=== PATIENT | female | born 1940 | race American Indian/Alaskan Native ===

== ENCOUNTER 2018-12-09 16:41 | Inpatient (IN) | payer MEDICARE ==
[2018-12-09] MEDS ORDERED: NACL 0.9% 1000 ML 1,000 ML IV ONE (17:11)
--- NOTE | 2018-12-09 17:16 | Emergency Department Report ---
ED Syncope HPI - General Stated Complaint: SYNCOPE Time Seen by Provider: 12/09/18 17:10 Source: patient, EMS Exam Limitations: clinical condition - History of Present Illness Initial Comments: Patient is a 77-year-old female that presents emergency room with complaints of syncope and nausea and vomiting. Patient has history of dementia. Patient is currently A&OX1. EMS report reviewed. Per report from EMS, patient had a few bouts of nausea and vomiting and then had a syncopal episode and was found on the floor when EMS arrived. Patient also has seizure like activity per report. Patient sent to the ER via EMS from her assisted living and memory care. Patient is a poor historian due to her dementia and altered cognition. Patient states she passed out but is not for sure how long. Patient states she has been feeling nauseous. Patient denies chest pain or shortness of breath. Patient denies fever or chills. Timing/Prior Episodes: single episode today Precipitating Factors: Positive: nausea Context: activity Loss of Consciousness: brief (seconds) Current Symptoms: back to normal - Related Data Allergies/Adverse Reactions: Allergies No Known Allergies Allergy (Verified 12/09/18 19:05) ED Review of Systems ROS: Stated complaint: SYNCOPE Other details as noted in HPI Comment: Unobtainable due to pts medical conditions ED Past Medical Hx - Past Medical History Previous Medical History?: Yes Hx Psychiatric Treatment: Yes Hx Dementia: Yes Additional medical history: Hyperlipidemia, dementia - Surgical History Past Surgical History?: No - Family History Family history: no significant - Social History Smoking Status: Never Smoker Substance Use Type: None ED Physical Exam - General Limitations: Altered Mental Status General appearance: alert, in no apparent distress - Head Head exam: Present: atraumatic, normocephalic - Eye Eye exam: Present: normal appearance, PERRL Pupils: Present: normal accommodation - ENT ENT exam: Present: mucous membranes moist - Neck Neck exam: Present: normal inspection - Respiratory Respiratory exam: Present: normal lung sounds bilaterally. Absent: respiratory distress - Cardiovascular Cardiovascular Exam: Present: regular rate, normal rhythm. Absent: systolic murmur, diastolic murmur, rubs, gallop - GI/Abdominal GI/Abdominal exam: Present: soft, normal bowel sounds - Extremities Exam Extremities exam: Present: normal inspection - Back Exam Back exam: Present: normal inspection - Neurological Exam Neurological exam: Present: alert, altered - Psychiatric Psychiatric exam: Present: normal affect, normal mood - Skin Skin exam: Present: warm, dry, intact, normal color. Absent: rash ED Course Vital Signs 12/09/18 12/09/18 12/09/18 17:15 19:15 19:31 Temperature 97.6 F Pulse Rate 87 97 H Respiratory 28 H 15 Rate Blood Pressure 156/65 138/111 Blood Pressure 134/44 [Left] O2 Sat by Pulse 100 98 99 Oximetry 12/09/18 12/09/18 12/09/18 20:00 21:15 21:21 Temperature Pulse Rate 87 85 Respiratory 13 13 Rate Blood Pressure 140/59 154/76 154/76 Blood Pressure [Left] O2 Sat by Pulse 99 Oximetry 12/09/18 12/09/18 21:30 21:41 Temperature Pulse Rate 87 Respiratory 24 17 Rate Blood Pressure 154/76 140/59 Blood Pressure [Left] O2 Sat by Pulse Oximetry - Reevaluation(s) Reevaluation #1: Patient resting in bed without problems. The patient has a 22-gauge in her right hand however a bigger more superior IV unable to be obtained. The patient will have a nuclear medicine study for her elevated d-dimer and syncope. 12/09/18 19:14 Discussed all results with patient. Patient will be admitted to the hospitalist service. Patient agrees to plan of care. 12/09/18 20:45 - Consultations Consultation #1: Hospitalist consulted for admission. Hospitalist to admit patient. Hospitalist to assume care patient. 12/09/18 20:45 ED Medical Decision Making - Lab Data Result diagrams: 12/09/18 17:18 12/09/18 17:18 - EKG Data -: EKG Interpreted by Mi EKG shows normal: sinus rhythm, axis, intervals, QRS complexes, ST-T waves Rate: normal - EKG Data Interpretation: [facility] - Radiology Data Radiology results: report reviewed PROCEDURE: CT HEAD/BRAIN WO CON TECHNIQUE: Computerized tomography of the head was performed without contrast material. CT DOSE LENGTH PRODUCT: 1047.3 mGycm HISTORY: Syncope COMPARISONS: None . FINDINGS: Brain: There is no evidence of intracranial hemorrhage. No parenchymal hemorrhage is seen. No mass lesions or mass effect are identified. No abnormal extra-axial fluid collections or masses are seen. There is some decreased density seen in the periventricular white matter without mass effect. This is fairly symmetric and does not exhibit any mass effect consistent with gliosis probably on the basis of microvascular disease or white matter changes of aging. Ventricles: The ventricles, sulcal pattern and fissures are prominent consistent with atrophy. Bone Windows: No evidence of fracture. Paranasal sinuses: Clear. Mastoid air cells: Clear. IMPRESSION: There is evidence of moderate atrophy and gliosis. No acute intracranial abnormalities are identified. PROCEDURE: XR CHEST 1V AP TECHNIQUE: Chest radiograph single view. HISTORY: cough COMPARISONS: None . FINDINGS: Frontal view of the chest was acquired and demonstrates that the heart is mildly large. There is no evidence of congestive heart failure. There is no consolidative infiltrate. IMPRESSION: Cardiomegaly. Otherwise, no active disease in the chest PROCEDURE: Nuclear medicine ventilation and perfusion lung scan. TECHNIQUE: Ventilation imaging was done in the posterior projection using 15.33 mCi of xenon-133 gas. Perfusion imaging was done in multiple projections using 4.07 mCi of technetium 99m MAA. HISTORY: syncope. elevated d-dimer COMPARISONS: Comparison chest radiograph 12/09/2018. FINDINGS: There is symmetrical, homogeneous ventilation bilaterally. There is no trapping of xenon gas during the washout phase of the study. The perfusion images are also homogeneous. The lung scan is normal and carries an extremely low probability of pulmonary embolism. IMPRESSION: Normal lung scan. - Medical Decision Making Patient is a 77-year-old female Emergency room with complaints of syncope and possible seizure-like activity and nausea vomiting. Patient admitted to the hospital service. Patient lives unremarkable. Patient just x-ray negative. Patient's head CT negative. Patient had a lung scan for simple episode and elevated d-dimer and was negative for PE. - Differential Diagnosis syncope. Seizure-like activity. Nausea and vomiting. Critical Care Time: Yes Critical care attestation.: If time is entered above; I have spent that time in minutes in the direct care of this critically ill patient, excluding procedure time. Critical Care Time: 35 minutes ED Disposition Clinical Impression: Seizure-like activity, Elevated d-dimer Syncopal episodes Qualifiers: Syncope type: unspecified Qualified Code(s): R55 - Syncope and collapse Nausea & vomiting Qualifiers: Vomiting type: unspecified Vomiting Intractability: non-intractable Qualified Code(s): R11.2 - Nausea with vomiting, unspecified Disposition: -09 OP ADMIT IP TO THIS HOSP Is pt being admited?: Yes Does the pt Need Aspirin: No Condition: Fair Time of Disposition: 22:26
[2018-12-09 17:42] LABS: Basophils % (Auto) 0.2 % (0.0-1.8); Eosinophils % (Auto) 1.2 % (0.0-4.3); Hematocrit 38.6 % (30.3-42.9); Hemoglobin 12.8 gm/dl (10.1-14.3); Lymphocytes # (Auto) 1.6 K/mm3 (1.2-5.4); Lymphocytes % (Auto) 20.6 % (13.4-35.0); Mean Corpuscular HGB Conc 33 % (30-34); Mean Corpuscular Volume 86 fl (79-97); Monocytes % (Auto) 6.6 % (0.0-7.3); Platelet Count 222 K/mm3 (140-440); Red Blood Count 4.49 M/mm3 (3.65-5.03); Red Cell Distribution Width 15.8 % (13.2-15.2)
[2018-12-09 17:43] LABS: Eosinophils # (Auto) 0.1 K/mm3 (0.0-0.4); Monocytes # (Auto) 0.5 K/mm3 (0.0-0.8)
[2018-12-09 18:00] LABS: Creatine Kinase MB 2.3 ng/mL (0.0-4.0)
[2018-12-09 18:01] LABS: Alanine Aminotransferase 14 units/L (7-56); Albumin 3.6 g/dL (3.9-5); BUN/Creatinine Ratio 21; Blood Urea Nitrogen 21 mg/dL (7-17); Hemolysis Index 10
--- NOTE | 2018-12-09 18:01 | Cat Scan Report ---
PROCEDURE: CT HEAD/BRAIN WO CON TECHNIQUE: Computerized tomography of the head was performed without contrast material. CT DOSE LENGTH PRODUCT: 1047.3 mGycm HISTORY: Syncope COMPARISONS: None . FINDINGS: Brain: There is no evidence of intracranial hemorrhage. No parenchymal hemorrhage is seen. No mass lesions or mass effect are identified. No abnormal extra-axial fluid collections or masses are seen. There is some decreased density seen in the periventricular white matter without mass effect. This i s fairly symmetric and does not exhibit any mass effect consistent with gliosis probably on the basis of microvascular disease or white matter changes of aging. Ventricles: The ventricles, sulcal pattern and fissures are prominent consistent with atrophy. Bone Windows: No evidence of fracture. Paranasal sinuses: Clear. Mastoid air cells: Clear. IMPRESSION: There is evidence of moderate atrophy and gliosis. No acute intracranial abnormalities are identified . This document is electronically signed by Smith Cummings MD., December 09 2018 06:00:08 PM ET
--- NOTE | 2018-12-09 20:29 | XRay Report ---
PROCEDURE: XR CHEST 1V AP TECHNIQUE: Chest radiograph single view. HISTORY: cough COMPARISONS: None . FINDINGS: Frontal view of the chest was acquired and demonstrates that the heart is mildly large. The re is no evidence of congestive heart failure. There is no consolidative infiltrate. IMPRESSION: Cardiomegaly. Otherwise, no active disease in the chest This document is electronically signed by Eduard Valente MD., December 09 2018 08:27:03 PM ET
[2018-12-09] MEDS ORDERED: TYLENOL PO PRN (20:58)
[2018-12-09] MEDS ORDERED: SODIUM CHLORIDE FLUSH SYRINGE 10 ML IV PRN (20:58)
[2018-12-09] MEDS ORDERED: ZOFRAN IV PRN (20:58)
[2018-12-09] MEDS ORDERED: MILK OF MAGNESIA PO PRN (20:58)
--- NOTE | 2018-12-09 20:58 | History and Physical Report ---
<BARTOLOME SOMMER - Last Filed: 12/09/18 23:42> History of Present Illness Date of examination: 12/09/18 Date of admission: 12/09/2018 Chief complaint: syncope or seizure History of present illness: Patient is a 77-year-old female with PMHx of dementia, who was brought to the ER for syncope and seizure activities. Pt is currently resides in a assisted because of dementia. Pt's daughter states that she was called by the home care about the her mother's syncopal episode and the seizure activity today. She states that the pt had no prior history of seizure disorder. Pt answer yes or no to question, she was unable to provide medical history due to dementia. Past History Past Medical History: other (dementia) Past Surgical History: No surgical history Social history: no significant social history Family history: no significant family history Medications and Allergies Allergies Allergy/AdvReac Type Severity Reaction Status Date / Time No Known Allergies Allergy Verified 12/09/18 19:05 Review of Systems ROS unobtainable: due to mental status Exam - Constitutional Vitals: Temp Pulse Resp BP Pulse Ox 97.6 F 97 H 15 134/44 98 12/09/18 19:15 12/09/18 19:15 12/09/18 19:15 12/09/18 19:15 12/09/18 19:15 General appearance: Present: no acute distress - EENT Eyes: Present: PERRL, EOM intact - Neck Neck: Present: supple, normal ROM - Respiratory Respiratory effort: normal Respiratory: bilateral: CTA - Cardiovascular Rhythm: regular - Extremities Extremities: no ischemia, No edema Peripheral Pulses: within normal limits - Abdominal General gastrointestinal: Present: non-tender, non-distended Female genitourinary: Present: deferred - Rectal Rectal Exam: deferred - Integumentary Integumentary: Present: warm, dry - Musculoskeletal Musculoskeletal: strength equal bilaterally - Psychiatric Psychiatric: appropriate mood/affect - Neurologic Neurologic: moves all extremities Results - Labs CBC & Chem 7: 12/09/18 17:18 12/09/18 17:18 Labs: Laboratory Last Values WBC 7.7 K/mm3 (4.5-11.0) 12/09/18 17:18 RBC 4.49 M/mm3 (3.65-5.03) 12/09/18 17:18 Hgb 12.8 gm/dl (10.1-14.3) 12/09/18 17:18 Hct 38.6 % (30.3-42.9) 12/09/18 17:18 MCV 86 fl (79-97) 12/09/18 17:18 MCH 29 pg (28-32) 12/09/18 17:18 MCHC 33 % (30-34) 12/09/18 17:18 RDW 15.8 % (13.2-15.2) H 12/09/18 17:18 Plt Count 222 K/mm3 (140-440) 12/09/18 17:18 Lymph % (Auto) 20.6 % (13.4-35.0) 12/09/18 17:18 [place] % (Auto) 6.6 % (0.0-7.3) 12/09/18 17:18 Eos % (Auto) 1.2 % (0.0-4.3) 12/09/18 17:18 Baso % (Auto) 0.2 % (0.0-1.8) 12/09/18 17:18 Lymph # 1.6 K/mm3 (1.2-5.4) 12/09/18 17:18 [place] # 0.5 K/mm3 (0.0-0.8) 12/09/18 17:18 Eos # 0.1 K/mm3 (0.0-0.4) 12/09/18 17:18 Baso # 0.0 K/mm3 (0.0-0.1) 12/09/18 17:18 Seg Neutrophils % 71.4 % (40.0-70.0) H 12/09/18 17:18 Seg Neutrophils # 5.5 K/mm3 (1.8-7.7) 12/09/18 17:18 660.35 ng/mlDDU (0-234) H 12/09/18 17:18 Sodium 134 mmol/L (137-145) L 12/09/18 17:18 Potassium 3.9 mmol/L (3.6-5.0) 12/09/18 17:18 Chloride 99.0 mmol/L (98-107) 12/09/18 17:18 Carbon Dioxide 23 mmol/L (22-30) 12/09/18 17:18 16 mmol/L 12/09/18 17:18 BUN 21 mg/dL (7-17) H 12/09/18 17:18 1.0 mg/dL (0.7-1.2) 12/09/18 17:18 Estimated GFR > 60 ml/min 12/09/18 17:18 21 % 12/09/18 17:18 Glucose 114 mg/dL (65-100) H 12/09/18 17:18 Calcium 11.0 mg/dL (8.4-10.2) H 12/09/18 17:18 0.20 mg/dL (0.1-1.2) 12/09/18 17:18 AST 17 units/L (5-40) 12/09/18 17:18 ALT 14 units/L (7-56) 12/09/18 17:18 85 units/L (35-129) 12/09/18 17:18 43 units/L (30-135) 12/09/18 17:18 CK-MB (CK-2) 2.3 ng/mL (0.0-4.0) 12/09/18 17:18 CK-MB (CK-2) Rel Index 5.3 (0-4) H 12/09/18 17:18 < 0.010 ng/mL (0.00-0.029) 12/09/18 17:18 7.1 g/dL (6.3-8.2) 12/09/18 17:18 3.6 g/dL (3.9-5) L 12/09/18 17:18 1.0 % 12/09/18 17:18 Assessment and Plan Assessment and plan: 1. Acute syncopal episode 2. Seizure disorder 3. Dementia Plan: Admit to [facility] Seizure precaution Monitor neuro status q2hr Consult neurology for evaluation EEG in am Pt has no home medications DVT prophylaxis with Lovenox Advance Directives: Yes VTE prophylaxis?: Chemical Plan of care discussed with patient/family: Yes <YADIRA HINOJOSA - Last Filed: 12/10/18 06:03> History of Present Illness Date of admission: 12/09/18 20:59 Medications and Allergies Active Meds: Active Medications Acetaminophen (Tylenol) 650 mg PO Q4H PRN PRN Reason: Pain MILD(1-3)/Fever >100.5/TORRES Aspirin (Aspirin) 325 mg PO QDAY [facility] Enoxaparin Sodium (Lovenox) 40 mg SUB-Q QDAY [facility] Famotidine (Pepcid) 10 mg PO BID [facility] Last Admin: 12/09/18 22:54 Dose: 10 mg Documented by: Sodium Chloride (Nacl 0.9% 1000 Ml) 1,000 mls @ 75 mls/hr IV DIRECT [facility] Last Admin: 12/09/18 22:54 Dose: 75 mls/hr Documented by: Magnesium Hydroxide (Milk Of Magnesia) 30 ml PO Q4H PRN PRN Reason: Constipation Ondansetron HCl (Zofran) 4 mg IV Q8H PRN PRN Reason: Nausea And Vomiting Sodium Chloride (Sodium Chloride Flush Syringe 10 Ml) 10 ml IV BID [facility] Last Admin: 12/09/18 22:54 Dose: 10 ml Documented by: Sodium Chloride (Sodium Chloride Flush Syringe 10 Ml) 10 ml IV PRN PRN PRN Reason: LINE FLUSH Exam - Constitutional Vitals: Temp Pulse Resp BP Pulse Ox 97.5 F L 84 18 148/54 100 12/09/18 23:22 12/09/18 23:22 12/09/18 23:22 12/09/18 23:22 12/09/18 23:22 Results - Labs CBC & Chem 7: 12/09/18 17:18 12/09/18 17:18 Labs: Laboratory Last Values WBC 7.7 K/mm3 (4.5-11.0) 12/09/18 17:18 RBC 4.49 M/mm3 (3.65-5.03) 12/09/18 17:18 Hgb 12.8 gm/dl (10.1-14.3) 12/09/18 17:18 Hct 38.6 % (30.3-42.9) 12/09/18 17:18 MCV 86 fl (79-97) 12/09/18 17:18 MCH 29 pg (28-32) 12/09/18 17:18 MCHC 33 % (30-34) 12/09/18 17:18 RDW 15.8 % (13.2-15.2) H 12/09/18 17:18 Plt Count 222 K/mm3 (140-440) 12/09/18 17:18 Lymph % (Auto) 20.6 % (13.4-35.0) 12/09/18 17:18 [place] % (Auto) 6.6 % (0.0-7.3) 12/09/18 17:18 Eos % (Auto) 1.2 % (0.0-4.3) 12/09/18 17:18 Baso % (Auto) 0.2 % (0.0-1.8) 12/09/18 17:18 Lymph # 1.6 K/mm3 (1.2-5.4) 12/09/18 17:18 [place] # 0.5 K/mm3 (0.0-0.8) 12/09/18 17:18 Eos # 0.1 K/mm3 (0.0-0.4) 12/09/18 17:18 Baso # 0.0 K/mm3 (0.0-0.1) 12/09/18 17:18 Seg Neutrophils % 71.4 % (40.0-70.0) H 12/09/18 17:18 Seg Neutrophils # 5.5 K/mm3 (1.8-7.7) 12/09/18 17:18 660.35 ng/mlDDU (0-234) H 12/09/18 17:18 Sodium 134 mmol/L (137-145) L 12/09/18 17:18 Potassium 3.9 mmol/L (3.6-5.0) 12/09/18 17:18 Chloride 99.0 mmol/L (98-107) 12/09/18 17:18 Carbon Dioxide 23 mmol/L (22-30) 12/09/18 17:18 16 mmol/L 12/09/18 17:18 BUN 21 mg/dL (7-17) H 12/09/18 17:18 1.0 mg/dL (0.7-1.2) 12/09/18 17:18 Estimated GFR > 60 ml/min 12/09/18 17:18 21 % 12/09/18 17:18 Glucose 114 mg/dL (65-100) H 12/09/18 17:18 POC Glucose 112 (70-105) H 12/10/18 00:37 Calcium 11.0 mg/dL (8.4-10.2) H 12/09/18 17:18 0.20 mg/dL (0.1-1.2) 12/09/18 17:18 AST 17 units/L (5-40) 12/09/18 17:18 ALT 14 units/L (7-56) 12/09/18 17:18 85 units/L (35-129) 12/09/18 17:18 43 units/L (30-135) 12/09/18 17:18 CK-MB (CK-2) 2.3 ng/mL (0.0-4.0) 12/09/18 17:18 CK-MB (CK-2) Rel Index 5.3 (0-4) H 12/09/18 17:18 < 0.010 ng/mL (0.00-0.029) 12/09/18 17:18 7.1 g/dL (6.3-8.2) 12/09/18 17:18 3.6 g/dL (3.9-5) L 12/09/18 17:18 1.0 % 12/09/18 17:18 Triglycerides 91 mg/dL (2-149) 12/09/18 21:14 Cholesterol 167 mg/dL (50-199) 12/09/18 21:14 99 mg/dL (50-130) 12/09/18 21:14 59 mg/dL (40-59) 12/09/18 21:14 2.83 % 12/09/18 21:14 Assessment and Plan Assessment and plan: 77-year-old woman with a history of hyperlipidemia, dementia was brought to the emergency room from a personal assisted because the caregiver reported to the family that the patient had a syncopal episode and seizure. Family at bedside is not able to give details. The daughters state that she had a similar episode 3 weeks ago, EMS was called at that time and her blood pressure was noted to be low. Physical exam is benign. Discontinue stroke workup, obtain EEG, carotid Doppler, echo and consult neurology. Add ativan for seizure. 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
--- NOTE | 2018-12-09 21:21 | Nuclear Medicine Report ---
PROCEDURE: Nuclear medicine ventilation and perfusion lung scan. TECHNIQUE: Ventilation imaging was done in the posterior projection using 15.33 mCi of xenon-133 gas. Perfusion imaging was done in multiple projections using 4.07 mCi of technetium 99m MAA. HISTORY: syncope. elevated d-dimer COMPARISONS: Comparison chest radiograph 12/09/2018. FINDINGS: There is symmetrical, homogeneous ventilation bilaterally. There is no trapping of xenon gas during t he washout phase of the study. The perfusion images are also homogeneous. The lung scan is normal and carries an extremely low probability of pulmonary embolism. IMPRESSION: Normal lung scan. This document is electronically signed by Arpan Foster MD., December 09 2018 09:19:17 PM ET
[2018-12-09 22:11] LABS: Chol/HDL Ratio 2.83 %
[2018-12-09] MEDS: NACL 0.9% 1000 ML 1,000 ML IV SCH (22:54)
[2018-12-09] MEDS: PEPCID PO SCH (22:54)
[2018-12-09] MEDS: SODIUM CHLORIDE FLUSH SYRINGE 10 ML IV SCH (22:54)
[2018-12-10] MEDS ORDERED: ATIVAN IV PRN (06:03)
--- NOTE | 2018-12-10 11:48 | Vascular Lab Report ---
PROCEDURE: VL CAROTID DUPLEX BILAT TECHNIQUE: Carotid duplex Doppler ultrasound. Grayscale, color flow and spectral waveform images wer e obtained. HISTORY: syncope COMPARISON: None FINDINGS: There is a moderate amount of plaque bilaterally. On the right there is elevated flow velocity in the proximal ICA measured up to 422 cm/s. This indicates stenosis of greater than 70%. Right vertebral a rtery flow is antegrade. On the left there is also moderate plaque. There is no significant elevation in left ICA flow velocit y to indicate a hemodynamically significant stenosis. Specifically, findings correspond to less than 50% stenosis. The left ECA velocity is mildly elevated at 129 cm/s which may indicate proximal ECA st enosis. Left vertebral artery flow is antegrade. IMPRESSION: Marked velocity elevation focally in the proximal right ICA. Findings suggest greater than 70% stenos is. There is no evidence of any hemodynamically significant stenosis on the left. This document is electronically signed by Shilpa Sim MD., December 10 2018 11:46:11 AM ET
[2018-12-10] MEDS: PEPCID PO SCH ×2 (14:59→21:15)
[2018-12-10] MEDS: ASPIRIN PO SCH (14:59)
[2018-12-10] MEDS: LOVENOX SUB-Q SCH (15:00)
[2018-12-10] MEDS: SODIUM CHLORIDE FLUSH SYRINGE 10 ML IV SCH ×2 (15:00→23:13)
--- NOTE | 2018-12-10 16:36 | Progress Note ---
History Interval history: Syncope Seizure disorder Alzheimer's Dementia Seizure precaution Monitor neuro status q2hr Consult neurology for evaluation EEG in am Pt has no home medications DVT prophylaxis with Lovenox Hospitalist Physical - Constitutional Vitals: Temp Pulse Resp BP Pulse Ox 98.2 F 88 18 159/49 100 12/10/18 16:11 12/10/18 16:11 12/10/18 16:11 12/10/18 16:11 12/10/18 16:11 General appearance: Present: no acute distress Results - Labs CBC & Chem 7: 12/09/18 17:18 12/09/18 17:18 Labs: Laboratory Last Values WBC 7.7 K/mm3 (4.5-11.0) 12/09/18 17:18 RBC 4.49 M/mm3 (3.65-5.03) 12/09/18 17:18 Hgb 12.8 gm/dl (10.1-14.3) 12/09/18 17:18 Hct 38.6 % (30.3-42.9) 12/09/18 17:18 MCV 86 fl (79-97) 12/09/18 17:18 MCH 29 pg (28-32) 12/09/18 17:18 MCHC 33 % (30-34) 12/09/18 17:18 RDW 15.8 % (13.2-15.2) H 12/09/18 17:18 Plt Count 222 K/mm3 (140-440) 12/09/18 17:18 Lymph % (Auto) 20.6 % (13.4-35.0) 12/09/18 17:18 Randall % (Auto) 6.6 % (0.0-7.3) 12/09/18 17:18 Eos % (Auto) 1.2 % (0.0-4.3) 12/09/18 17:18 Baso % (Auto) 0.2 % (0.0-1.8) 12/09/18 17:18 Lymph # 1.6 K/mm3 (1.2-5.4) 12/09/18 17:18 Randall # 0.5 K/mm3 (0.0-0.8) 12/09/18 17:18 Eos # 0.1 K/mm3 (0.0-0.4) 12/09/18 17:18 Baso # 0.0 K/mm3 (0.0-0.1) 12/09/18 17:18 Seg Neutrophils % 71.4 % (40.0-70.0) H 12/09/18 17:18 Seg Neutrophils # 5.5 K/mm3 (1.8-7.7) 12/09/18 17:18 660.35 ng/mlDDU (0-234) H 12/09/18 17:18 Sodium 134 mmol/L (137-145) L 12/09/18 17:18 Potassium 3.9 mmol/L (3.6-5.0) 12/09/18 17:18 Chloride 99.0 mmol/L (98-107) 12/09/18 17:18 Carbon Dioxide 23 mmol/L (22-30) 12/09/18 17:18 16 mmol/L 12/09/18 17:18 BUN 21 mg/dL (7-17) H 12/09/18 17:18 1.0 mg/dL (0.7-1.2) 12/09/18 17:18 Estimated GFR > 60 ml/min 12/09/18 17:18 21 % 12/09/18 17:18 Glucose 114 mg/dL (65-100) H 12/09/18 17:18 POC Glucose 85 (70-105) 12/10/18 07:54 Calcium 11.0 mg/dL (8.4-10.2) H 12/09/18 17:18 0.20 mg/dL (0.1-1.2) 12/09/18 17:18 AST 17 units/L (5-40) 12/09/18 17:18 ALT 14 units/L (7-56) 12/09/18 17:18 85 units/L (35-129) 12/09/18 17:18 43 units/L (30-135) 12/09/18 17:18 CK-MB (CK-2) 2.3 ng/mL (0.0-4.0) 12/09/18 17:18 CK-MB (CK-2) Rel Index 5.3 (0-4) H 12/09/18 17:18 < 0.010 ng/mL (0.00-0.029) 12/09/18 17:18 7.1 g/dL (6.3-8.2) 12/09/18 17:18 3.6 g/dL (3.9-5) L 12/09/18 17:18 1.0 % 12/09/18 17:18 Triglycerides 91 mg/dL (2-149) 12/09/18 21:14 Cholesterol 167 mg/dL (50-199) 12/09/18 21:14 99 mg/dL (50-130) 12/09/18 21:14 59 mg/dL (40-59) 12/09/18 21:14 2.83 % 12/09/18 21:14 Active Medications - Current Medications Current Medications: Generic Name Dose Route Start Last Admin Trade Name Freq PRN Reason Stop Dose Admin Acetaminophen 650 mg 12/09/18 20:58 Tylenol PO Q4H PRN Pain MILD(1-3)/Fever >100.5/TORRES Aspirin 325 mg 12/10/18 10:00 12/10/18 14:59 Aspirin PO 325 mg QDAY YOMI Administration Atorvastatin Calcium 20 mg 12/10/18 22:00 Lipitor PO QHS YOMI Enoxaparin Sodium 40 mg 12/10/18 10:00 12/10/18 15:00 Lovenox SUB-Q 40 mg QDAY YOMI Administration Famotidine 10 mg 12/09/18 22:00 12/10/18 14:59 Pepcid PO 10 mg BID YOMI Administration Sodium Chloride 1,000 mls @ 75 mls/hr 12/09/18 21:00 12/09/18 22:54 Nacl 0.9% 1000 Ml IV 75 mls/hr DIRECT YOMI Administration Lorazepam 1 mg 12/10/18 06:03 Ativan IV Q4H PRN Seizures Magnesium Hydroxide 30 ml 12/09/18 20:58 Milk Of Magnesia PO Q4H PRN Constipation Miscellaneous Medication 150 mg 12/10/18 22:00 Trazodone Hcl [Trazodone Hcl] PO QHS YOMI Olanzapine 2.5 mg 12/11/18 10:00 Zyprexa PO QDAY YOMI Ondansetron HCl 4 mg 12/09/18 20:58 Zofran IV Q8H PRN Nausea And Vomiting Sodium Chloride 10 ml 12/09/18 22:00 12/10/18 15:00 Sodium Chloride Flush Syringe 10 Ml IV 10 ml BID YOMI Administration Sodium Chloride 10 ml 12/09/18 20:58 Sodium Chloride Flush Syringe 10 Ml IV PRN PRN LINE FLUSH Nutrition/Malnutrition Assess - Dietary Evaluation Nutrition/Malnutrition Findings: Nutrition Notes Start: 12/10/18 14:59 Freq: Status: Active Protocol: Document 12/10/18 14:59 RM (Rec: 12/10/18 15:02 RM [id number]) Nutrition Notes Need for Assessment generated from: [facility] Initial or Follow up Assessment Other Pertinent Diagnosis Dementia, Seizure disorder Current Diet Cardiac Labs/Tests Reviewed Pertinent Medications Reviewed Height 5 ft 6 in Weight 65.4 kg [place] Body Weight (kg) 59.09 BMI 23.2 Subjective/Other Information Screened for malnutrition. Pt confused at time of visit. No family present. Noted uneaten breakfast and lunch at bedside. No temporal or orbital wasting. Percent of energy/protein needs met: 0%/0% Burn Absent Trauma Absent #1 Nutrition Diagnosis Inadequate oral intake Etiology dementia As Evidenced by Signs and Symptoms uneaten breakfast and lunch at bedside Is patient on ventilator? No Is Patient Ambulatory and/or Out of Bed No REE-([facility]-confined to bed) 1393.512 Calculation Used for Recommendations [facility] Additional Notes Protein Needs: 65-78g (1-1.2g/ kg) Fluid Needs: 1 ml/kcal Nutrition Intervention Change Diet Order: Continue current Add Supplement/Snack (indicate name/kcal Ensure Enlive 1 daily /protein ) Provides kCal: 350 Provides Protein (gm) 20 Goal #1 Meet at least 75% of calorie and protein needs via PO and ONS intakes Anticipated Discharge Needs: Cardiac diet Follow-Up By: 12/13/18 Additional Comments Follow for PO and ONS intakes
--- NOTE | 2018-12-10 18:44 | Electroencephalogram Report ---
Electroencephalogram EEG Date of exam: 12/10/18 History: Syncope with possible seizure Impression: This 17 channel (including 1 EKG channel) digital electroencephalogram was performed with the 10/20 international montage in a 20 minute recording. There is no alpha activity. The record is characterized by slowing of the background into the theta range. At times there are POSTS (positive occipital sharp transients of sleep) but no other sleep architecture. There is considerable movement and EMG artifact as the patient attempts to get up several times. No epileptiform activity was seen. Description: The waking background shows an appropriate organization with well-defined anterior posterior voltage and frequency gradients. Posteriorly, there is a well-developed alpha rhythm of [ ] Hz which is symmetrical and bilaterally reactive. Anteriorly, there is a pattern of lower voltage and slightly irregular theta and beta range frequencies. During drowsiness, there is attenuation of the background rhythms. The sleep background shows normal organization with well-formed sleep spindles and vertex waves which are synchronous and symmetrical. Throughout, the recording there are no epileptiform abnormalities, focal or lateralizing features, or significant interhemispheric findings. Interpretation: Abnormal waking and drowsy EEG due to slowing of the background suggesting a diffuse process. Correlation with imaging is advised. This EEG does not exclude epilepsy of partial onset. Up to 4 EEGs over several months may be needed to capture interictal epileptiform activity.
--- NOTE | 2018-12-10 18:48 | Consultation ---
History of Present Illness Consult date: 12/10/18 Requesting physician: BARTOLOME SOMMER Reason for Consult: syncope, possible seizure Chief complaint: syncope, possible seizure History of present illness: This 77-year-old -Green[place]ic female is referred for syncope with possible seizure. Syncope occurred after multiple episodes of vomiting. No family is available to obtain further history. CT scan shows moderate atrophy especially temporal. Echo with bubbles was negative. Past medical history: Unobtainable Family history: Unobtainable Social history: Unobtainable Review of systems: Unobtainable Gen. physical exam: General appearance: Well-developed well-nourished late 70s -[place]ic female, sleeping. HEENT: Atraumatic, normocephalic, no bruits. Neck: Supple, no bruits. Heart: No murmur or extra sounds. Extremities: 2+ dorsalis pedis pulses, no clubbing cyanosis or edema. Neurologic exam: Mental status: Very somnolent but arouses with stimulation particularly with gag testing. Does not cooperate for exam except as per below. Cannot give month or season or year even with prompts. Initially mute but later says a few phrases such as "I don't know". Cannot give president after first name prompt or first letter of last name as prompt. Cannot do calculations or abstractions or naming of a pen or spoon. Cranial nerves: Rodriguez intact to visual threat, cannot see fundi due to lack of cooperation, PERRL, EOMs intact spontaneously without nystagmus, facial sensation intact to pinprick, no facial weakness, cannot test Barker, gags are positive, will not cooperate for shoulder shrug testing, tongue protrudes in the midline. Cerebellar: Spontaneous hand to face without tremor, will not cooperate for [id number] testing. Sensory exam: Seems to have decreased pinprick in the feet when asked on exam. Could not do other sensory testing. Motor exam upper extremities: Banner Painter is 4- right and 3 left. Does not cooperate for rapid alternating movements, tone is normal. Motor exam lower extremities: Moves lower extremities equally, does not cooperate for individual muscle testing. Tone is normal. Reflexes: Palmomental, snout and jaw jerk are negative, suck reflex is slightly positive. Triceps are 1+, biceps and brachioradialis are 2. Royal's is positive on the left and slightly positive on the right. Knee jerks and ankle jerks are 2+ bilaterally without clonus. Toes are upgoing on the right and downgoing on the left to Babinski testing. Past History Past Medical History: other (dementia) Past Surgical History: No surgical history Social history: no significant social history Family history: no significant family history Medications and Allergies Allergies Allergy/AdvReac Type Severity Reaction Status Date / Time No Known Allergies Allergy Verified 12/09/18 19:05 Home Medications Medication Instructions Recorded Confirmed Last Taken Type AtorvaSTATin [Lipitor] 20 mg PO QHS 12/10/18 12/10/18 3 Days Ago History ~12/07/18 OLANzapine [ZyPREXA] 2.5 mg PO QDAY 12/10/18 12/10/18 3 Days Ago History ~12/07/18 Trazodone HCl 150 mg PO QHS 12/10/18 12/10/18 3 Days Ago History ~12/07/18 Active Meds: Active Medications Acetaminophen (Tylenol) 650 mg PO Q4H PRN PRN Reason: Pain MILD(1-3)/Fever >100.5/TORRES Aspirin (Aspirin) 325 mg PO QDAY [facility] Last Admin: 12/10/18 14:59 Dose: 325 mg Documented by: Atorvastatin Calcium (Lipitor) 20 mg PO QHS [facility] Enoxaparin Sodium (Lovenox) 40 mg SUB-Q QDAY [facility] Last Admin: 12/10/18 15:00 Dose: 40 mg Documented by: Famotidine (Pepcid) 10 mg PO BID [facility] Last Admin: 12/10/18 14:59 Dose: 10 mg Documented by: Sodium Chloride (Nacl 0.9% 1000 Ml) 1,000 mls @ 75 mls/hr IV DIRECT [facility] Last Admin: 12/09/18 22:54 Dose: 75 mls/hr Documented by: Lorazepam (Ativan) 1 mg IV Q4H PRN PRN Reason: Seizures Magnesium Hydroxide (Milk Of Magnesia) 30 ml PO Q4H PRN PRN Reason: Constipation Olanzapine (Zyprexa) 2.5 mg PO QDAY [facility] Ondansetron HCl (Zofran) 4 mg IV Q8H PRN PRN Reason: Nausea And Vomiting Sodium Chloride (Sodium Chloride Flush Syringe 10 Ml) 10 ml IV BID [facility] Last Admin: 12/10/18 15:00 Dose: 10 ml Documented by: Sodium Chloride (Sodium Chloride Flush Syringe 10 Ml) 10 ml IV PRN PRN PRN Reason: LINE FLUSH Trazodone HCl (Desyrel) 150 mg PO QHS YOMI Physical Examination - Vital Signs Vital Signs: Vital Signs Pulse Resp BP Pulse Ox 87 28 H 156/65 100 12/09/18 17:15 12/09/18 17:15 12/09/18 17:15 12/09/18 17:15 Results - Laboratory Findings CBC and BMP: 12/09/18 17:18 12/09/18 17:18 Abnormal Lab Findings: Abnormal Labs 12/09/18 12/09/18 12/09/18 17:18 17:18 17:18 RDW 15.8 H Seg Neutrophils % 71.4 H D-Dimer 660.35 H Sodium 134 L BUN 21 H Glucose 114 H POC Glucose Calcium 11.0 H CK-MB (CK-2) Rel Index 5.3 H Albumin 3.6 L 12/10/18 00:37 RDW Seg Neutrophils % D-Dimer Sodium BUN Glucose POC Glucose 112 H Calcium CK-MB (CK-2) Rel Index Albumin Assessment and Plan Impression: 1. Syncope vs seizure 2. Memory loss Plan: 1. EEG ordered, nonfocal, some slowing, no epileptiform activity. 2. Syncope could cause a provoked seizure. No need for antiepileptic drug unless seizures recur. 3. Dementia workup as outpatient if not done. Would avoid donepezil since it can trigger seizures. Also avoid tramadol, other narcotics except hydrocodone, certain antibiotics such as the quinolones and penicillins and Flagyl and Diflucan, and diphenhydramine (Benadryl) which is in many OTC sleep aids. 50 min spent with difficult exam due to lack of cooperation. Thank you for an interesting consultation on this unfortunate late 70s woman. Signing off, call for any questions.
[2018-12-10] MEDS: NACL 0.9% 1000 ML 1,000 ML IV SCH (19:36)
[2018-12-10] MEDS: DESYREL PO SCH (21:14)
[2018-12-10] MEDS ORDERED: NON-FORMULARY (Trazodone Hcl [Trazodone Hcl] 150 MG) PO SCH (22:00)
[2018-12-11] MEDS: LOVENOX SUB-Q SCH (10:49)
[2018-12-11] MEDS: SODIUM CHLORIDE FLUSH SYRINGE 10 ML IV SCH ×3 (10:49→23:22)
[2018-12-11] MEDS: PEPCID PO SCH ×3 (10:49→23:22)
[2018-12-11] MEDS: ASPIRIN PO SCH (10:49)
[2018-12-11] MEDS: NACL 0.9% 1000 ML 1,000 ML IV SCH (10:50)
--- NOTE | 2018-12-11 13:06 | Progress Note ---
History Interval history: SyncopeECHO unremarkable Right ICA stenosis. Vascular surgery consult Seizure disorder. EEG reveals no epileptiform abnormalities, focal or lateralizing features, or significant interhemispheric findings. Neuro fo llowing Alzheimer's Dementia DVT prophylaxis with Loveedwardx Hospitalist Physical - Constitutional Vitals: Temp Pulse Resp BP Pulse Ox 97.7 F 71 18 143/44 99 12/11/18 11:21 12/11/18 12:13 12/11/18 11:21 12/11/18 11:21 12/11/18 07:21 General appearance: Present: no acute distress Results - Labs CBC & Chem 7: 12/09/18 17:18 12/09/18 17:18 Labs: Laboratory Last Values WBC 7.7 K/mm3 (4.5-11.0) 12/09/18 17:18 RBC 4.49 M/mm3 (3.65-5.03) 12/09/18 17:18 Hgb 12.8 gm/dl (10.1-14.3) 12/09/18 17:18 Hct 38.6 % (30.3-42.9) 12/09/18 17:18 MCV 86 fl (79-97) 12/09/18 17:18 MCH 29 pg (28-32) 12/09/18 17:18 MCHC 33 % (30-34) 12/09/18 17:18 RDW 15.8 % (13.2-15.2) H 12/09/18 17:18 Plt Count 222 K/mm3 (140-440) 12/09/18 17:18 Lymph % (Auto) 20.6 % (13.4-35.0) 12/09/18 17:18 Churchill % (Auto) 6.6 % (0.0-7.3) 12/09/18 17:18 Eos % (Auto) 1.2 % (0.0-4.3) 12/09/18 17:18 Baso % (Auto) 0.2 % (0.0-1.8) 12/09/18 17:18 Lymph # 1.6 K/mm3 (1.2-5.4) 12/09/18 17:18 Churchill # 0.5 K/mm3 (0.0-0.8) 12/09/18 17:18 Eos # 0.1 K/mm3 (0.0-0.4) 12/09/18 17:18 Baso # 0.0 K/mm3 (0.0-0.1) 12/09/18 17:18 Seg Neutrophils % 71.4 % (40.0-70.0) H 12/09/18 17:18 Seg Neutrophils # 5.5 K/mm3 (1.8-7.7) 12/09/18 17:18 660.35 ng/mlDDU (0-234) H 12/09/18 17:18 Sodium 134 mmol/L (137-145) L 12/09/18 17:18 Potassium 3.9 mmol/L (3.6-5.0) 12/09/18 17:18 Chloride 99.0 mmol/L (98-107) 12/09/18 17:18 Carbon Dioxide 23 mmol/L (22-30) 12/09/18 17:18 16 mmol/L 12/09/18 17:18 BUN 21 mg/dL (7-17) H 12/09/18 17:18 1.0 mg/dL (0.7-1.2) 12/09/18 17:18 Estimated GFR > 60 ml/min 12/09/18 17:18 21 % 12/09/18 17:18 Glucose 114 mg/dL (65-100) H 12/09/18 17:18 POC Glucose 85 (70-105) 12/10/18 07:54 5.4 % (4-6) 12/11/18 04:32 Calcium 11.0 mg/dL (8.4-10.2) H 12/09/18 17:18 0.20 mg/dL (0.1-1.2) 12/09/18 17:18 AST 17 units/L (5-40) 12/09/18 17:18 ALT 14 units/L (7-56) 12/09/18 17:18 85 units/L (35-129) 12/09/18 17:18 43 units/L (30-135) 12/09/18 17:18 CK-MB (CK-2) 2.3 ng/mL (0.0-4.0) 12/09/18 17:18 CK-MB (CK-2) Rel Index 5.3 (0-4) H 12/09/18 17:18 < 0.010 ng/mL (0.00-0.029) 12/09/18 17:18 7.1 g/dL (6.3-8.2) 12/09/18 17:18 3.6 g/dL (3.9-5) L 12/09/18 17:18 1.0 % 12/09/18 17:18 Triglycerides 91 mg/dL (2-149) 12/09/18 21:14 Cholesterol 167 mg/dL (50-199) 12/09/18 21:14 99 mg/dL (50-130) 12/09/18 21:14 59 mg/dL (40-59) 12/09/18 21:14 2.83 % 12/09/18 21:14 Active Medications - Current Medications Current Medications: Generic Name Dose Route Start Last Admin Trade Name Freq PRN Reason Stop Dose Admin Acetaminophen 650 mg 12/09/18 20:58 Tylenol PO Q4H PRN Pain MILD(1-3)/Fever >100.5/TORRES Aspirin 325 mg 12/10/18 10:00 12/11/18 10:49 Aspirin PO 325 mg QDAY YOMI Administration Atorvastatin Calcium 20 mg 12/10/18 22:00 12/10/18 21:15 Lipitor PO 20 mg QHS YOMI Administration Enoxaparin Sodium 40 mg 12/10/18 10:00 12/11/18 10:49 Lovenox SUB-Q 40 mg QDAY YOMI Administration Famotidine 10 mg 12/09/18 22:00 12/11/18 10:49 Pepcid PO 10 mg BID YOMI Administration Sodium Chloride 1,000 mls @ 75 mls/hr 12/09/18 21:00 12/11/18 10:50 Nacl 0.9% 1000 Ml IV 75 mls/hr DIRECT YOMI Administration Lorazepam 1 mg 12/10/18 06:03 Ativan IV Q4H PRN Seizures Magnesium Hydroxide 30 ml 12/09/18 20:58 Milk Of Magnesia PO Q4H PRN Constipation Olanzapine 2.5 mg 12/11/18 10:00 12/11/18 10:49 Zyprexa PO 2.5 mg QDAY YOMI Administration Ondansetron HCl 4 mg 12/09/18 20:58 Zofran IV Q8H PRN Nausea And Vomiting Sodium Chloride 10 ml 12/09/18 22:00 12/11/18 10:49 Sodium Chloride Flush Syringe 10 Ml IV 10 ml BID YOMI Administration Sodium Chloride 10 ml 12/09/18 20:58 Sodium Chloride Flush Syringe 10 Ml IV PRN PRN LINE FLUSH Trazodone HCl 150 mg 12/10/18 22:00 12/10/18 21:14 Desyrel PO 150 mg QHS YOMI Administration Nutrition/Malnutrition Assess - Dietary Evaluation Nutrition/Malnutrition Findings: Nutrition Notes Start: 12/10/18 14:59 Freq: Status: Active Protocol: Document 12/10/18 14:59 RM (Rec: 12/10/18 15:02 RM [id number]) Nutrition Notes Need for Assessment generated from: [facility] Initial or Follow up Assessment Other Pertinent Diagnosis Dementia, Seizure disorder Current Diet Cardiac Labs/Tests Reviewed Pertinent Medications Reviewed Height 5 ft 6 in Weight 65.4 kg [place] Body Weight (kg) 59.09 BMI 23.2 Subjective/Other Information Screened for malnutrition. Pt confused at time of visit. No family present. Noted uneaten breakfast and lunch at bedside. No temporal or orbital wasting. Percent of energy/protein needs met: 0%/0% Burn Absent Trauma Absent #1 Nutrition Diagnosis Inadequate oral intake Etiology dementia As Evidenced by Signs and Symptoms uneaten breakfast and lunch at bedside Is patient on ventilator? No Is Patient Ambulatory and/or Out of Bed No REE-([facility]-confined to bed) 1393.512 Calculation Used for Recommendations [facility] Additional Notes Protein Needs: 65-78g (1-1.2g/ kg) Fluid Needs: 1 ml/kcal Nutrition Intervention Change Diet Order: Continue current Add Supplement/Snack (indicate name/kcal Ensure Enlive 1 daily /protein ) Provides kCal: 350 Provides Protein (gm) 20 Goal #1 Meet at least 75% of calorie and protein needs via PO and ONS intakes Anticipated Discharge Needs: Cardiac diet Follow-Up By: 12/13/18 Additional Comments Follow for PO and ONS intakes
[2018-12-11] MEDS: DESYREL PO SCH ×2 (20:47→23:21)
[2018-12-12] MEDS: PEPCID PO SCH ×2 (10:15→21:24)
[2018-12-12] MEDS: LOVENOX SUB-Q SCH (10:15)
[2018-12-12] MEDS: ASPIRIN PO SCH (10:15)
[2018-12-12] MEDS: SODIUM CHLORIDE FLUSH SYRINGE 10 ML IV SCH ×2 (10:16→21:24)
--- NOTE | 2018-12-12 13:29 | Cat Scan Report ---
PROCEDURE: CT ANGIO NECK TECHNIQUE: CT angiography of the neck performed. IV contrast administered. Axial images and coronal and sagittal reformatted images were obtained. HISTORY: STENSOSIS COMPARISON: None FINDINGS: There is moderate atherosclerotic plaque at carotid bifurcations bilaterally. There is stenosis at origin of right internal carotid artery of about 90%. There is stenosis involving origin of left internal carotid origin/carotid bulb of about 50%. There is soft plaque causing about 30% stenosis of the left mid common carotid artery. Vertebral arteries are patent bilaterally. The left vertebral artery is dominant. IMPRESSION: 90% stenosis involving origin of right internal carotid artery. 50% stenosis involving left internal carotid origins/carotid bulb. 30% stenosis involving mid aspect of the left common carotid artery. This document is electronically signed by Shilpa Sim MD., December 12 2018 01:27:26 PM ET
--- NOTE | 2018-12-12 15:49 | Consultation ---
History of Present Illness - Reason for Consult Consult date: 12/12/18 R ICA stenosis - History of Present Illness 77-year-old female with PMHx of dementia, who was brought to the ER for syncope and seizure activities. Pt is currently resides in a long term because of dementia. Pt's daughter states that she was called by the home care about the her mother's syncopal episode and the seizure activity today. She states that the pt had no prior history of seizure disorder. Pt answer yes or no to question, she was unable to provide medical history due to dementia. Carotid ultrasound performed demonstrating right sided internal carotid artery stenosis. CTA performed demonstrating severe right internal carotid artery narrowing, and moderate left internal carotid artery narrowing. EEG by neurology demonstrates no eliptiform activity. Vascular consulted for assistance. Past History Past Medical History: other (dementia) Past Surgical History: No surgical history Social history: no significant social history Family history: no significant family history Medications and Allergies Allergies Allergy/AdvReac Type Severity Reaction Status Date / Time No Known Allergies Allergy Verified 12/09/18 19:05 Home Medications Medication Instructions Recorded Confirmed Last Taken Type AtorvaSTATin [Lipitor] 20 mg PO QHS 12/10/18 12/10/18 3 Days Ago History ~12/07/18 OLANzapine [ZyPREXA] 2.5 mg PO QDAY 12/10/18 12/10/18 3 Days Ago History ~12/07/18 Trazodone HCl 150 mg PO QHS 12/10/18 12/10/18 3 Days Ago History ~12/07/18 Active Meds: Active Medications Acetaminophen (Tylenol) 650 mg PO Q4H PRN PRN Reason: Pain MILD(1-3)/Fever >100.5/TORRES Aspirin (Aspirin) 325 mg PO QDAY [facility] Last Admin: 12/12/18 10:15 Dose: 325 mg Documented by: Atorvastatin Calcium (Lipitor) 20 mg PO QHS [facility] Last Admin: 12/11/18 23:21 Dose: Not Given Documented by: Enoxaparin Sodium (Lovenox) 40 mg SUB-Q QDAY [facility] Last Admin: 12/12/18 10:15 Dose: 40 mg Documented by: Famotidine (Pepcid) 10 mg PO BID [facility] Last Admin: 12/12/18 10:15 Dose: 10 mg Documented by: Lorazepam (Ativan) 1 mg IV Q4H PRN PRN Reason: Seizures Magnesium Hydroxide (Milk Of Magnesia) 30 ml PO Q4H PRN PRN Reason: Constipation Olanzapine (Zyprexa) 2.5 mg PO QDAY [facility] Last Admin: 12/12/18 10:15 Dose: 2.5 mg Documented by: Ondansetron HCl (Zofran) 4 mg IV Q8H PRN PRN Reason: Nausea And Vomiting Sodium Chloride (Sodium Chloride Flush Syringe 10 Ml) 10 ml IV BID [facility] Last Admin: 12/12/18 10:16 Dose: 10 ml Documented by: Sodium Chloride (Sodium Chloride Flush Syringe 10 Ml) 10 ml IV PRN PRN PRN Reason: LINE FLUSH Trazodone HCl (Desyrel) 150 mg PO QHS [facility] Last Admin: 12/11/18 23:21 Dose: Not Given Documented by: Review of Systems ROS unobtainable: due to mental status Exam - Constitutional Vitals: Temp Pulse Resp BP Pulse Ox 98.2 F 73 18 162/60 99 12/12/18 12:20 12/12/18 14:29 12/12/18 12:20 12/12/18 12:20 12/12/18 12:33 General appearance: Present: no acute distress, other (A&O x 0) - EENT ENT: hearing intact - Respiratory Respiratory effort: normal - Extremities Extremities: normal temperature, normal color - Abdominal General gastrointestinal: Present: soft - Neurologic Neurologic: moves all extremities (diffuse generalized weakness, alert without any orientation) Results - Labs CBC & Chem 7: 12/09/18 17:18 12/09/18 17:18 - Imaging and Cardiology CT Scan - head: report reviewed, image reviewed Assessment and Plan 77-year-old female with advanced Alzheimer dementia who presented with syncope and seizure. Patient has severe right internal carotid artery stenosis (greater than 90%) and left-sided 50% internal carotid artery narrowing. Due to the patient's severe advancing dementia, she is a very suboptimal candidate for any revascularization. I contacted the patient's daughter who agrees and does not want her mother to undergo any procedures (endarterectomy or carotid stenting). I believe the benefit from such procedures is in consequential given the severe advancing dementia. Recommend optimal medical therapy (antiplatelet and statin therapy).
--- NOTE | 2018-12-12 18:07 | Progress Note ---
History Interval history: Syncope. ECHO unremarkable. Carotid US suggestive of R ICA stenosis Right ICA stenosis. Vascular surgery consult Seizure disorder. EEG reveals no epileptiform abnormalities, focal or lateralizing features, or significant interhemispheric findings. Neuro following Alzheimer's Dementia. Unsure of baseline DVT prophylaxis with Lovenox Hospitalist Physical - Constitutional Vitals: Temp Pulse Resp BP Pulse Ox 98.6 F 68 20 133/65 98 12/12/18 16:27 12/12/18 17:51 12/12/18 16:27 12/12/18 16:27 12/12/18 16:27 General appearance: Present: no acute distress, other (A&O x 0) Results - Labs CBC & Chem 7: 12/09/18 17:18 12/09/18 17:18 Labs: Laboratory Last Values WBC 7.7 K/mm3 (4.5-11.0) 12/09/18 17:18 RBC 4.49 M/mm3 (3.65-5.03) 12/09/18 17:18 Hgb 12.8 gm/dl (10.1-14.3) 12/09/18 17:18 Hct 38.6 % (30.3-42.9) 12/09/18 17:18 MCV 86 fl (79-97) 12/09/18 17:18 MCH 29 pg (28-32) 12/09/18 17:18 MCHC 33 % (30-34) 12/09/18 17:18 RDW 15.8 % (13.2-15.2) H 12/09/18 17:18 Plt Count 222 K/mm3 (140-440) 12/09/18 17:18 Lymph % (Auto) 20.6 % (13.4-35.0) 12/09/18 17:18 Roosevelt % (Auto) 6.6 % (0.0-7.3) 12/09/18 17:18 Eos % (Auto) 1.2 % (0.0-4.3) 12/09/18 17:18 Baso % (Auto) 0.2 % (0.0-1.8) 12/09/18 17:18 Lymph # 1.6 K/mm3 (1.2-5.4) 12/09/18 17:18 Roosevelt # 0.5 K/mm3 (0.0-0.8) 12/09/18 17:18 Eos # 0.1 K/mm3 (0.0-0.4) 12/09/18 17:18 Baso # 0.0 K/mm3 (0.0-0.1) 12/09/18 17:18 Seg Neutrophils % 71.4 % (40.0-70.0) H 12/09/18 17:18 Seg Neutrophils # 5.5 K/mm3 (1.8-7.7) 12/09/18 17:18 660.35 ng/mlDDU (0-234) H 12/09/18 17:18 Sodium 134 mmol/L (137-145) L 12/09/18 17:18 Potassium 3.9 mmol/L (3.6-5.0) 12/09/18 17:18 Chloride 99.0 mmol/L (98-107) 12/09/18 17:18 Carbon Dioxide 23 mmol/L (22-30) 12/09/18 17:18 16 mmol/L 12/09/18 17:18 BUN 21 mg/dL (7-17) H 12/09/18 17:18 1.0 mg/dL (0.7-1.2) 12/09/18 17:18 Estimated GFR > 60 ml/min 12/09/18 17:18 21 % 12/09/18 17:18 Glucose 114 mg/dL (65-100) H 12/09/18 17:18 POC Glucose 85 (70-105) 12/10/18 07:54 5.4 % (4-6) 12/11/18 04:32 Calcium 11.0 mg/dL (8.4-10.2) H 12/09/18 17:18 0.20 mg/dL (0.1-1.2) 12/09/18 17:18 AST 17 units/L (5-40) 12/09/18 17:18 ALT 14 units/L (7-56) 12/09/18 17:18 85 units/L (35-129) 12/09/18 17:18 43 units/L (30-135) 12/09/18 17:18 CK-MB (CK-2) 2.3 ng/mL (0.0-4.0) 12/09/18 17:18 CK-MB (CK-2) Rel Index 5.3 (0-4) H 12/09/18 17:18 < 0.010 ng/mL (0.00-0.029) 12/09/18 17:18 7.1 g/dL (6.3-8.2) 12/09/18 17:18 3.6 g/dL (3.9-5) L 12/09/18 17:18 1.0 % 12/09/18 17:18 Triglycerides 91 mg/dL (2-149) 12/09/18 21:14 Cholesterol 167 mg/dL (50-199) 12/09/18 21:14 99 mg/dL (50-130) 12/09/18 21:14 59 mg/dL (40-59) 12/09/18 21:14 2.83 % 12/09/18 21:14 Active Medications - Current Medications Current Medications: Generic Name Dose Route Start Last Admin Trade Name Freq PRN Reason Stop Dose Admin Acetaminophen 650 mg 12/09/18 20:58 Tylenol PO Q4H PRN Pain MILD(1-3)/Fever >100.5/TORRES Aspirin 325 mg 12/10/18 10:00 12/12/18 10:15 Aspirin PO 325 mg QDAY [facility] Administration Atorvastatin Calcium 20 mg 12/10/18 22:00 12/11/18 23:21 Lipitor PO Not Given QHS [facility] Enoxaparin Sodium 40 mg 12/10/18 10:00 12/12/18 10:15 Lovenox SUB-Q 40 mg QDAY [facility] Administration Famotidine 10 mg 12/09/18 22:00 12/12/18 10:15 Pepcid PO 10 mg BID [facility] Administration Lorazepam 1 mg 12/10/18 06:03 Ativan IV Q4H PRN Seizures Magnesium Hydroxide 30 ml 12/09/18 20:58 Milk Of Magnesia PO Q4H PRN Constipation Olanzapine 2.5 mg 12/11/18 10:00 12/12/18 10:15 Zyprexa PO 2.5 mg QDAY [facility] Administration Ondansetron HCl 4 mg 12/09/18 20:58 Zofran IV Q8H PRN Nausea And Vomiting Sodium Chloride 10 ml 12/09/18 22:00 12/12/18 10:16 Sodium Chloride Flush Syringe 10 Ml IV 10 ml BID [facility] Administration Sodium Chloride 10 ml 12/09/18 20:58 Sodium Chloride Flush Syringe 10 Ml IV PRN PRN LINE FLUSH Trazodone HCl 150 mg 12/10/18 22:00 12/11/18 23:21 Desyrel PO Not Given QHS [facility] Nutrition/Malnutrition Assess - Dietary Evaluation Nutrition/Malnutrition Findings: Nutrition Notes Start: 12/10/18 14:59 Freq: Status: Active Protocol: Document 12/10/18 14:59 RM (Rec: 12/10/18 15:02 RM [email or web address]) Nutrition Notes Need for Assessment generated from: [facility] Initial or Follow up Assessment Other Pertinent Diagnosis Dementia, Seizure disorder Current Diet Cardiac Labs/Tests Reviewed Pertinent Medications Reviewed Height 5 ft 6 in Weight 65.4 kg [place] Body Weight (kg) 59.09 BMI 23.2 Subjective/Other Information Screened for malnutrition. Pt confused at time of visit. No family present. Noted uneaten breakfast and lunch at bedside. No temporal or orbital wasting. Percent of energy/protein needs met: 0%/0% Burn Absent Trauma Absent #1 Nutrition Diagnosis Inadequate oral intake Etiology dementia As Evidenced by Signs and Symptoms uneaten breakfast and lunch at bedside Is patient on ventilator? No Is Patient Ambulatory and/or Out of Bed No REE-([facility]-confined to bed) [phone] Calculation Used for Recommendations [facility] Additional Notes Protein Needs: 65-78g (1-1.2g/ kg) Fluid Needs: 1 ml/kcal Nutrition Intervention Change Diet Order: Continue current Add Supplement/Snack (indicate name/kcal Ensure Enlive 1 daily /protein ) Provides kCal: 350 Provides Protein (gm) 20 Goal #1 Meet at least 75% of calorie and protein needs via PO and ONS intakes Anticipated Discharge Needs: Cardiac diet Follow-Up By: 12/13/18 Additional Comments Follow for PO and ONS intakes
[2018-12-12] MEDS: DESYREL PO SCH (21:24)
[2018-12-13 08:09] VITALS: BP 132/54
--- NOTE | 2018-12-13 10:33 | Discharge Summary ---
Providers - Providers Date of Admission: 12/09/18 20:59 Attending physician: MODE PARKER MD 12/10/18 00:16 Consult to Physician [CONS] Routine Comment: Consulting Provider: LORENA HODGE Physician Instructions: Reason For Exam: seizure disorder 12/10/18 13:06 Occupational Therapy Evaluate and Treat [CONS] Routine Comment: Reason For Exam: evaluate and treat Physical Therapy Evaluation and Treat [CONS] Routine Comment: Reason For Exam: evaluate and treat 12/11/18 13:06 Consult to Physician [CONS] Routine Comment: Consulting Provider: SAMUEL PATTERSON Physician Instructions: Reason For Exam: Right ICA stenosis [facility] Reason for admission: EUN stenosis Condition: Fair Pertinent studies: CTA neck and carotid Dopplers Hospital course: 77-year-old female with PMHx of dementia, who was brought to the ER for syncope and seizure like activities. Pt is currently resides in a correction because of dementia. Pt's daughter states that she was called by the home care about the her mother's syncopal episode and the seizure activity today. She states that the pt had no prior history of seizure disorder. Pt answer yes or no to question, she was unable to provide medical history due to dementia. Carotid ultrasound performed demonstrating right sided internal carotid artery stenosis. CTA performed demonstrating severe right internal carotid artery narrowing, and moderate left internal carotid artery narrowing. EEG by neurology demonstrates no eliptiform activity. Vascular surgery was consulted and after a long discussion with the daughter given her age and her co-morbid conditions, the daughter declined carotid e ndarterectomy. The patient discharged back to personal home care. patient was stable at the time of discharge. Disposition: DC/[place]-06 HOME UNDER HOME [facility] Time spent for discharge: 32 minutes - Discharge Diagnoses (1) Elevated d-dimer Status: Acute (2) Nausea & vomiting Status: Acute Qualifiers: Vomiting type: unspecified Vomiting Intractability: non-intractable Qualified Code(s): R11.2 - Nausea with vomiting, unspecified (3) Seizure-like activity Status: Acute (4) Syncopal episodes Status: Acute Qualifiers: Syncope type: unspecified Qualified Code(s): R55 - Syncope and collapse Core Measure Documentation - Palliative Care Palliative Care/ Comfort Measures: Not Applicable - Core Measures Any of the following diagnoses?: none Exam - Physical Exam Narrative exam: Not in cardiopulmonary distress. The patient appeared well nourished and normally developed. Vital signs as documented. Head exam is unremarkable. No scleral icterus . Neck is without jugular venous distension, thyromegaly, or carotid bruits. Lungs are clear to auscultation. Cardiac exam reveals regular rate and Rhythm. Abdominal exam reveals normal bowel sounds. Extremities are nonedematous. HOGS[employer] OPENER: severe dementia. - Constitutional Vitals: Temp Pulse Resp BP Pulse Ox 97.4 F L 68 18 132/54 99 12/13/18 07:18 12/13/18 05:15 12/13/18 07:18 12/13/18 07:18 12/13/18 07:45 Plan Activity: no restrictions Weight Bearing Status: Full Weight Bearing Diet: low cholesterol Follow up with: KSENIA RODRIGUEZ MD [Primary Care Provider] - 3-5 Days Prescriptions: Aspirin 325 mg PO QDAY #30 tablet
[2018-12-13] MEDS: ASPIRIN PO SCH (10:46)
[2018-12-13] MEDS: PEPCID PO SCH (10:46)
[2018-12-13] MEDS: SODIUM CHLORIDE FLUSH SYRINGE 10 ML IV SCH (10:47)
[2018-12-13] MEDS: LOVENOX SUB-Q SCH (10:47)
== END 2018-12-13 12:51 | disposition home or self-care (01) | DRG 101 ==
LOC: ED 16:41 → 4A 20:59
PROVIDERS: ADMIT Internal Medicine; ATTEND Internal Medicine
DX: G40.909 Epilepsy, unspecified, not intractable, without status epilepticus (principal); R55 Syncope and collapse; G30.9 Alzheimer's disease, unspecified; F02.80 Dementia in other diseases classified elsewhere, unspecified severity, without behavioral disturbance, psychotic disturbance, mood disturbance, and anxiety; I65.23 Occlusion and stenosis of bilateral carotid arteries; R11.2 Nausea with vomiting, unspecified
CPT/HCPCS: 36415; 70450; 70498; 71045; 78582; 80053; 80061; 82550; 82553; 82962; 83036; 84484; 85025; 85379; 93005; 93010; 93306; 93880; 95819; G0378; A9270-GY; A9540; A9558; J1650; J7030; Q9967

== ENCOUNTER 2019-01-15 18:56 | Inpatient (IN) | payer MEDICARE ==
--- NOTE | 2019-01-15 19:31 | Emergency Department Report ---
ED Neuro Deficit HPI - General Stated Complaint: NEURO ISSUES Time Seen by Provider: 01/15/19 19:07 Source: EMS - History of Present Illness Initial Comments: Patient is 78 years old female, lives in a long term. Patient has history of dementia. Patient brought to the emergency room via EMS for possible stroke. EMS stated that patient was found in a wheelchair outside the long term. EMS stated that the volunteer in a long term stated that patient was placed outside around 4:00 and at her baseline but now she is more confused. No one available to confirm the last time was the patient seen normal. Patient is not com municating. Family not available to give more information. Telemetry neurology immediately consulted. Patient examined by Dr Melendez, who stated that patient is not a TPA candidate due to unknown last known time. -: unknown Presenting Symptoms: Present: Altered Mental Status - Related Data Home Medications: Home Medications Medication Instructions Recorded Confirmed Last Taken AtorvaSTATin [Lipitor] 20 mg PO QHS 12/10/18 01/15/19 3 Days Ago ~12/07/18 OLANzapine [ZyPREXA] 2.5 mg PO QDAY 12/10/18 01/15/19 3 Days Ago ~12/07/18 Trazodone HCl 150 mg PO QHS 12/10/18 01/15/19 3 Days Ago ~12/07/18 Divalproex [Caden BRYANT] 125 mg PO QHS 01/15/19 01/15/19 Unknown Allergies/Adverse Reactions: Allergies Allergy/AdvReac Type Severity Reaction Status Date / Time No Known Allergies Allergy Verified 12/09/18 19:05 ED Review of Systems ROS: Stated complaint: NEURO ISSUES Other details as noted in HPI Comment: Unobtainable due to pts medical conditions ED Past Medical Hx - Past Medical History Hx Congestive Heart Failure: No Hx Diabetes: No Hx Psychiatric Treatment: Yes Hx Asthma: No Hx COPD: No Hx Dementia: Yes Additional medical history: Hyperlipidemia, dementia - Surgical History Additional Surgical History: unable to obtain surgical hx due to dementia - Social History Smoking Status: Never Smoker Substance Use Type: None - Medications Home Medications: Home Medications Medication Instructions Recorded Confirmed Last Taken Type AtorvaSTATin [Lipitor] 20 mg PO QHS 12/10/18 01/15/19 3 Days Ago History ~12/07/18 OLANzapine [ZyPREXA] 2.5 mg PO QDAY 12/10/18 01/15/19 3 Days Ago History ~12/07/18 Trazodone HCl 150 mg PO QHS 12/10/18 01/15/19 3 Days Ago History ~12/07/18 Divalproex [Caden BRYANT] 125 mg PO QHS 01/15/19 01/15/19 Unknown History ED Neuro Physical Exam - General General appearance: obtunded Suspected Stroke: Yes - Head Head exam: Present: atraumatic, normocephalic, normal inspection - Eye Eye exam: Present: normal appearance - ENT ENT exam: Present: normal exam, normal orophraynx, mucous membranes moist - Neck Neck exam: Present: normal inspection, full ROM. Absent: tenderness, meningismus, lymphadenopathy, thyromegaly - Respiratory Respiratory exam: Present: normal lung sounds bilaterally - Cardiovascular Cardiovascular Exam: Present: tachycardia - GI/Abdominal GI/Abdominal exam: Present: soft, normal bowel sounds. Absent: distended, tenderness, guarding, rebound, rigid - Neurological Exam Neurological exam: Present: altered - NIHSS Assessment Interval: Baseline 1a. Level of Consciousness: arousable/minor stimuli 1b. LOC Questions: answers no questions correctly 1c. LOC Commands: performs no tasks correctly 2. Best Gaze: partial gaze palsy 3. Visual: no visual loss 4. Facial Palsy: partial paralysis 5b. Motor Arm Right: some gravity effort 5a. Motor Arm Left: no movement 6a. Motor Leg Left: no movement 6b. Motor Leg Right: some gravity effort 7. Limb Ataxia: absent 8. Sensory: normal 9. Best Language: severe aphasia 10. Dysarthria: intubated or other barrier 11. Extinction/Inattention: complete neglect Total Score: 24 Stroke Severity: Severe Stroke ED Course Vital Signs 01/15/19 01/15/19 01/15/19 19:35 20:30 21:00 Temperature 97.4 F L Pulse Rate 101 H 95 H Respiratory 18 18 15 Rate Blood Pressure 111/79 131/75 [Left] O2 Sat by Pulse 18 L 100 100 Oximetry 01/15/19 01/15/19 01/16/19 22:10 23:15 00:05 Temperature Pulse Rate 91 H 92 H 97 H Respiratory 14 20 21 Rate Blood Pressure 141/51 133/74 139/64 [Left] O2 Sat by Pulse 100 100 100 Oximetry - Lab Data Result diagrams: 01/15/19 19:15 01/15/19 20:07 Lab Results 01/15/19 01/15/19 01/15/19 Range/Units 19:15 19:15 19:15 WBC 11.7 H (4.5-11.0) K/mm3 RBC 5.10 H (3.65-5.03) M/mm3 Hgb 14.3 (10.1-14.3) gm/dl Hct 43.9 H (30.3-42.9) % MCV 86 (79-97) fl MCH 28 (28-32) pg MCHC 33 (30-34) % RDW 16.5 H (13.2-15.2) % Plt Count 187 (140-440) K/mm3 Lymph % (Auto) Lace Stripper Miller % (Auto) Lace Stripper Eos % (Auto) Lace Stripper Baso % (Auto) Lace Stripper Lymph # Lace Stripper Miller # Lace Stripper Eos # Lace Stripper Baso # Lace Stripper Seg Neutrophils % Lace Stripper Seg Neutrophils # Lace Stripper PT 11.3 L (12.2-14.9) Sec. INR 0.85 L (0.87-1.13) APTT 20.0 L (24.2-36.6) Sec. Thrombin Time 15.0 L (15.1-19.6) Sec. Sodium (137-145) mmol/L Potassium (3.6-5.0) mmol/L Chloride (98-107) mmol/L Carbon Dioxide (22-30) mmol/L Anion Gap mmol/L BUN (7-17) mg/dL Creatinine (0.7-1.2) mg/dL Estimated GFR ml/min BUN/Creatinine Ratio % Glucose (65-100) mg/dL POC Glucose (70-105) Calcium (8.4-10.2) mg/dL Troponin T (0.00-0.029) ng/mL 01/15/19 01/15/19 Range/Units 19:53 20:07 WBC (4.5-11.0) K/mm3 RBC (3.65-5.03) M/mm3 Hgb (10.1-14.3) gm/dl Hct (30.3-42.9) % MCV (79-97) fl MCH (28-32) pg MCHC (30-34) % RDW (13.2-15.2) % Plt Count (140-440) K/mm3 Lymph % (Auto) Miller % (Auto) Eos % (Auto) Baso % (Auto) Lymph # Miller # Eos # Baso # Seg Neutrophils % Seg Neutrophils # PT (12.2-14.9) Sec. INR (0.87-1.13) APTT (24.2-36.6) Sec. Thrombin Time (15.1-19.6) Sec. Sodium 143 (137-145) mmol/L Potassium 4.4 (3.6-5.0) mmol/L Chloride 110.8 H (98-107) mmol/L Carbon Dioxide 22 (22-30) mmol/L Anion Gap 15 mmol/L BUN 20 H (7-17) mg/dL Creatinine 1.2 (0.7-1.2) mg/dL Estimated GFR 53 ml/min BUN/Creatinine Ratio 17 % Glucose 128 H (65-100) mg/dL POC Glucose 132 H (70-105) Calcium 12.2 H* (8.4-10.2) mg/dL Troponin T < 0.010 (0.00-0.029) ng/mL - EKG Data -: EKG Interpreted by Me EKG shows normal: sinus rhythm Rate: tachycardia Interpretation: no acute changes - Radiology Data Radiology results: report reviewed - Medical Decision Making Patient is 78 years old female, lives in a long term. Patient has history of dementia. Patient brought to the emergency room via EMS for possible stroke. EMS stated that patient was found in a wheelchair outside the long term. EMS s tated that the volunteer in a long term stated that patient was placed outside around 4:00 and at her baseline but now she is more confused. No one available to confirm the last time was the patient seen normal. Patient is not communicating . Family not available to give more information. Telemetry neurology immediately consulted. Patient examined by Dr Melendez, who stated that patient is not a TPA candidate due to unknown last known time. Patient daughter arrived to the ER. She stated that the last time she saw one week ago. She stated that she did not talk to today or yesterday. She stated that she usually talk and walk by herself. I discussed the patient with Dr. Katelin Sevilla, she agreed to admit the patient to medical service for further management. Critical Care Time: Yes Critical care time in (mins) excluding proc time.: 30 Critical care attestation.: If time is entered above; I have spent that time in minutes in the direct care of this critically ill patient, excluding procedure time. ED Disposition Clinical Impression: Altered mental state, Stroke Disposition: DC-09 OP ADMIT IP TO THIS HOSP Is pt being admited?: Yes Condition: Stable
--- NOTE | 2019-01-15 19:41 | Cat Scan Report ---
CT head/brain without contrast INDICATION: MAIN: STROKE. TECHNIQUE: Routine CT head without contrast. All CT scans at this location are performed using CT dos e reduction for ALARA by means of automated exposure control. COMPARISON: 12/09/[address] FINDINGS: BRAIN / INTRACRANIAL CONTENTS: No acute hemorrhage, mass effect, midline shift, or hydrocephalus. No appreciable acute large territorial or lacunar infarct. No chronic infarct. Age-commensurate ventricu lar and cisternal/sulcal prominence, stable. Again seen are patchy and confluent hypodensities in the subcortical and periventricular white matter that likely represent chronic microvascular changes. ORBITS: No significant abnormality of visualized orbits. SINUSES / MASTOIDS: No significant abnormality of visualized sinuses and mastoid air cells. ADDITIONAL FINDINGS: None. IMPRESSION: 1. No acute intracranial abnormality. Signer Name: Mitchel Ponce MD Signed: 01/15/2019 7:36 PM Workstation Name: [id number]
[2019-01-15 19:44] LABS: INR 0.85 (0.87-1.13)
[2019-01-15] MEDS ORDERED: ASPIRIN PR ONE (19:49)
--- NOTE | 2019-01-15 19:49 | Emergency Department Report ---
ED Neuro Deficit HPI - General Chief Complaint: Altered Mental Status Stated Complaint: NEURO ISSUES Time Seen by Provider: 01/15/19 19:07 Source: EMS Mode of arrival: Stretcher Limitations: Altered Mental Status - History of Present Illness Initial Comments: [facility] Consult Services TeleStroke Metrics: LKW: 1600? Door Time: 1855 [facility] Contacted: 1901 [facility] at Bedside: 1907 NIHSS: 1912 Decision on Alteplase: Not to give as her last known well time is not definitively known. Interventional Candidate: Possibly. CTA head and neck are in process. Chief Complaint: AMS HPI: Asked to see this patient in telemedicine consultation. Consultation was performed with assistance of ancillary / medical staff at bedside. Verbal consent was attempted to perform the examination with telemedicine was obtained 78-year-old -[place] female who was brought to the emergency room by EMS for altered mental status. No family at bedside. Patient recently was admitted to the hospital at the end of November for seizure- like activity versus syncope. It was noted she had severe dementia and was alert and oriented x0. It also noted that she had no motor weakness. She had an EEG that was negative. She was found to have high-grade right ICA stenosis around 90% and moderate left ICA stenosis around 50%. Daughter had declined CA by vascular surgery. EMS reports that her current medications include Lipitor, Depakote, Zyprexa, and trazodone. Patient currently lives in a residential. Attempts to contact the residential were unsuccessful. According to EMS, the patient was left out sitting in the porch in her wheelchair around 4 PM. It is unknown exactly what the patient's neurological status was at the time. Then when staff checked up on her, she was not responding. When she arrived in the ER, she was noted to have a blood glucose of 118 and overall was normotensive. She was tachycardic. She initially preferred to look towards the right and spontaneously moved the right arm and right leg. She would move the left arm but then quickly would recoil back to her chest. She did not move her left leg as well as the right leg. She did eventually look to midline. Case was discussed with the ER attending. Since we truly do not know her last known well time or her neurological baseline, and we have been unable to reach the patient's family or residential, we decided not to proceed with IV alteplase administration. PMH: Dementia, syncope versus seizure, and carotid artery disease SOC: Patient lives in a residential. FMH: Unknown. ROS: 13 point review of systems were reviewed with the patient, and are all negative with the exception of the aforementioned in the history of present illness. VS: Blood pressure 142/100, pulse 147, respiration 17, oxygen saturation 96%, weight 48 kg Exam: Patient is in no apparent distress. Patient appears as stated age. No obvious acute respiratory or cardiac distress. Patient is well groomed and well-nourished. 1a- LOC: Keenly responsive - 0 1b- LOC questions: Answers neither questions correctly - 2 1c- LOC commands- Performs neither tasks correctly- 2 2- Gaze: Partial right gaze deviation - 1 3- Visual Rodriguez: normal, no Visual field deficit - 0 4- Facial movements: no facial palsy - 0 5- Upper limb motor left arm drift - 2 6- Lower limb motor left leg drift - 3 7- Limb Coordination: absent ataxia - 0 8- Sensory: no sensory loss - 0 9- Language - Global aphasia - 3 10- Speech - Severe dysarthria - 2 11- Neglect / Extinction left sided neglect - 1 NIHSS score: 16 Diagnostic Data: CT of the head showed no acute hemorrhage, mass, or large territory stroke. Blood glucose 118 per EMS Medical Data Reviewed: 1.Data?reviewed include clinical labs, radiology,?and medical tests; 2.Tests?results discussed w/performing or interpreting physician; 3.Obtaining/reviewing old medical records; 4.Obtaining?case history from another source; 5.Independent?review of image, tracing, or specimen. Medical Decision Making: - Extensive number of diagnosis or management options are considered below. - Extensive amount of complex data reviewed. - High risk of complication and/or morbidity or mortality are associated with differential diagnostic considerations below. - There may be?uncertain?outcome and increased probability of prolonged functional impairment or high probability of severe prolonged functional impairment associated with some of these differential diagnosis. Differential Diagnosis for Stroke: 1.?Cardioembolic?stroke 2. Small vessel disease/lacune 3. Thromboembolic, [id number] mechanism 4.?Hypercoagulable?state-related infarct 5. Transient ischemic attack 6. Thrombotic mechanism, large artery disease Assessment: 1. Possible right MCA stroke versus seizure 2. Possible seizure disorder 3. Dementia 4. Carotid artery disease with severe right ICA stenosis 90% and moderate left ICA stenosis 50% Recommendations: Should check CTA of the head and neck to better evaluate her intracranial and extracranial blood vessels now. Given the patient has a history of severe right ICA stenosis of around 90%, and family had declined right CEA recently, patient could have had a thromboembolic event from her high-grade right ICA stenosis. If CTA head and neck are positive for right ICA and right MCA occlusions, then she should be transferred to a tertiary care center that could offer potential mechanical thrombectomy if family wants further aggressive interventions. Certainly, if the family does not want any further interventions, she may be admitted to the hospital for further work-up of her symptoms. Consult local neurology team to assist with evaluation and management. Metabolic and infectious work-up per primary team. Check MRI of the brain to rule out any acute stroke. Could also check an EEG to rule out subclinical seizures. Check Depakote level. Start the patient on a rectal aspirin. Check hemoglobin A1c and lipid panel. Consult PT, OT, ST. Continue supportive care. Thank you for allowing [facility] to participate in the care of your patient. Please call me, Dr. Carvajal, with any questions at [phone]. Case discussed with the ER staff and ER Attending. Critical Care notation: I was called to see this critical patient emergently. I personally evaluated this critical patient for acute stroke evaluation, and determining their eligibility for IV Alteplase and interventional therapies. I have spent approximately 13 minutes with the patient, including time at bedside, time discussing the case with other physicians, reviewing plan of care, and time independently reviewing the records and scans. - Related Data Home Medications: Home Medications Medication Instructions Recorded Confirmed Last Taken AtorvaSTATin [Lipitor] 20 mg PO QHS 12/10/18 12/10/18 3 Days Ago ~12/07/18 OLANzapine [ZyPREXA] 2.5 mg PO QDAY 12/10/18 12/10/18 3 Days Ago ~12/07/18 Trazodone HCl 150 mg PO QHS 12/10/18 12/10/18 3 Days Ago ~12/07/18 Previous Rx's Medication Instructions Recorded Last Taken Type Aspirin 325 mg PO QDAY #30 tablet 12/13/18 Unknown Rx Allergies/Adverse Reactions: Allergies Allergy/AdvReac Type Severity Reaction Status Date / Time No Known Allergies Allergy Verified 12/09/18 19:05 ED Review of Systems ROS: Stated complaint: NEURO ISSUES Other details as noted in HPI ED Past Medical Hx - Past Medical History Hx Congestive Heart Failure: No Hx Diabetes: No Hx Psychiatric Treatment: Yes Hx Asthma: No Hx COPD: No Hx Dementia: Yes Additional medical history: Hyperlipidemia, dementia - Surgical History Additional Surgical History: unable to obtain surgical hx due to dementia - Social History Smoking Status: Never Smoker Substance Use Type: None - Medications Home Medications: Home Medications Medication Instructions Recorded Confirmed Last Taken Type AtorvaSTATin [Lipitor] 20 mg PO QHS 12/10/18 12/10/18 3 Days Ago History ~12/07/18 OLANzapine [ZyPREXA] 2.5 mg PO QDAY 12/10/18 12/10/18 3 Days Ago History ~12/07/18 Trazodone HCl 150 mg PO QHS 12/10/18 12/10/18 3 Days Ago History ~12/07/18 Aspirin 325 mg PO QDAY #30 tablet 12/13/18 Unknown Rx ED Neuro Physical Exam - General Limitations: Altered Mental Status General appearance: obtunded Suspected Stroke: Yes - NIHSS Assessment Interval: Baseline 1a. Level of Consciousness: alert/keenly responsive 1b. LOC Questions: answers no questions correctly 1c. LOC Commands: performs no tasks correctly 2. Best Gaze: partial gaze palsy 3. Visual: no visual loss 4. Facial Palsy: normal symmetrical movement 5b. Motor Arm Right: no drift 5a. Motor Arm Left: some gravity effort 6a. Motor Leg Left: no gravity effort 6b. Motor Leg Right: no drift 7. Limb Ataxia: absent 8. Sensory: normal 9. Best Language: mute/global aphasia 10. Dysarthria: severe dysarthria 11. Extinction/Inattention: visual/tactile inattention Total Score: 16 Stroke Severity: Moderate to Severe Stroke ED Course Vital Signs 01/15/19 19:35 Temperature 97.4 F L Pulse Rate 101 H Respiratory 18 Rate Blood Pressure 111/79 [Left] O2 Sat by Pulse 18 L Oximetry - Lab Data Lab Results 01/15/19 Range/Units 19:15 PT 11.3 L (12.2-14.9) Sec. INR 0.85 L (0.87-1.13) APTT 20.0 L (24.2-36.6) Sec. Critical care attestation.: If time is entered above; I have spent that time in minutes in the direct care of this critically ill patient, excluding procedure time. ED Disposition Clinical Impression: Altered mental state Disposition: [id number] OP ADMIT IP TO THIS HOSP Is pt being admited?: Yes Does the pt Need Aspirin: Yes Condition: Stable Referrals: KSENIA RODRIGUEZ MD [Primary Care Provider] - 3-5 Days
[2019-01-15 19:56] LABS: Hematocrit 43.9 % (30.3-42.9); Hemoglobin 14.3 gm/dl (10.1-14.3); Mean Corpuscular HGB Conc 33 % (30-34); Mean Corpuscular Volume 86 fl (79-97); Platelet Count 187 K/mm3 (140-440); Red Cell Distribution Width 16.5 % (13.2-15.2)
[2019-01-15 20:48] LABS: BUN/Creatinine Ratio 17; Blood Urea Nitrogen 20 mg/dL (7-17); Hemolysis Index 31
[2019-01-15 20:56] LABS: Calcium 12.2 mg/dL (8.4-10.2)
[2019-01-15] MEDS ORDERED: NACL 0.9% 1000 ML 1,000 ML IV ONE (21:04)
--- NOTE | 2019-01-15 22:20 | Cat Scan Report ---
CTA neck with and without contrast CLINICAL HISTORY: Right carotid stenosis. Technique: Multiple contiguous postcontrast axial CT images of the neck were obtained at 0.63 mm inte rvals. 3 plane MIP reconstructions were produced. Precontrast localizing images were also performed. All CT scans at this location are performed using the CT dose reduction for ALARA by means of automat ed exposure control. FINDINGS: There is irregular calcified plaque involving proximal right internal carotid artery with m arked, greater than 90% stenosis at the origin. Flow is seen more distally within the right cervical ICA. There is mild plaque involving the right common carotid artery without significant stenosis. There is also calcified plaque involving the proximal left ICA with with mild, approximately 30-40% s tenosis by NASCET criteria. There is a small focus of calcification at the distal most left cervical ICA without stenosis. There is also mild plaque along the mid to distal left common carotid artery wi th mild, less than 50% stenosis. There is calcification at the origin of the left vertebral artery with marked stenosis at. However, f low is seen within the more distal left vertebral artery without further stenosis. There also appears to be a marked stenosis of the origin of the right vertebral artery with significant small caliber o f the remaining cervical right vertebral artery. There is mild calcification involving the aortic arch. There is no significant focal stenosis of the arch vessels. Pression: There is irregular calcified plaque involving proximal right ICA with marked, greater than 90% stenos is by NASCET criteria. There is also calcification involving proximal left ICA with 30-40% stenosis. There is marked stenosis of the origins of the vertebral arteries bilaterally. Furthermore, there is notable decrease caliber of the more distal right vertebral artery. Signer Name: Arpan Aden MD Signed: 01/15/2019 10:16 PM Workstation Name: [id number]
--- NOTE | 2019-01-15 22:27 | Cat Scan Report ---
CTA head with and without IV contrast. CLINICAL HISTORY: Cerebrovascular accident. Technique: Multiple contiguous postcontrast CT images of the head were obtained at 0.63 mm intervals. 3 plane MIP reconstructions were obtained. Precontrast localizing images were also performed. CT scan s at this location are performed using the CT dose reduction for ALAMelodigram by means of automated exposure control. FINDINGS: No previous exams available for comparison. There is developmental origin of the post erior cerebral arteries bilaterally. 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 There is no significant focal stenosis involving the basilar or distal internal carotid arteries at. The proximal cerebral branches also demonstrate appropriate caliber without focal narro wing. The motion obscures evaluation of some the more distal branches is no clear CTA evidence of occ lusion. Furthermore, no intracranial aneurysm is appreciated. The dural venous sinuses opacify with c ontrast. There is extensive cerebral white matter disease which correlates with the earlier CT. 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 There is no significant focal stenosis involving the visualized intracranial vessels. Signer Name: Arpan Aden MD Signed: 01/15/2019 10:22 PM Workstation Name: [id number]
[2019-01-16] MEDS ORDERED: ZOFRAN IV PRN (00:22)
[2019-01-16] MEDS ORDERED: DULCOLAX PR PRN (00:22)
[2019-01-16] MEDS ORDERED: TYLENOL PO PRN (00:22)
[2019-01-16] MEDS ORDERED: SODIUM CHLORIDE FLUSH SYRINGE 10 ML IV PRN (00:22)
[2019-01-16] MEDS ORDERED: PHENERGAN PR PRN (00:22)
--- NOTE | 2019-01-16 00:39 | History and Physical Report ---
<HOLLIE AMES - Last Filed: 01/16/19 02:53> History of Present Illness Date of examination: 01/15/19 Date of admission: 01/15/19 23:44 Chief complaint: AMS suspected CVA History of present illness: 78-year-old -[place] female who resides in a [facility] with history of dementia, syncope, seizure, coronary artery disease present [facility] ED with complaints of altered mental status. At baseline pt is non verbal and unable to provide history. History is taken from EMS report and medical records. Pt was placed outside in wheelchair around 4pm yesterday. She was later found to be more confused in wheelchair by [facility] staff. EMS was called, and she was transferred to our facility for further evaluation and treatment. Past History Past Medical History: seizures, other (dementia, syncope) Past Surgical History: No surgical history Social history: other (lives in [facility]) Family history: no significant family history Medications and Allergies Allergies Allergy/AdvReac Type Severity Reaction Status Date / Time No Known Allergies Allergy Verified 12/09/18 19:05 Home Medications Medication Instructions Recorded Confirmed Last Taken Type AtorvaSTATin [Lipitor] 20 mg PO QHS 12/10/18 01/15/19 3 Days Ago History ~12/07/18 OLANzapine [ZyPREXA] 2.5 mg PO QDAY 12/10/18 01/15/19 3 Days Ago History ~12/07/18 Trazodone HCl 150 mg PO QHS 12/10/18 01/15/19 3 Days Ago History ~12/07/[address] [Caden BRYANT] 125 mg PO QHS 01/15/19 01/15/19 Unknown History Active Meds: Active Medications Acetaminophen (Tylenol) 650 mg PO Q4H PRN PRN Reason: Pain, Mild (1-3) Aspirin (Aspirin) 300 mg MA QDAY YOMI Atorvastatin Calcium (Lipitor) 40 mg PO QHS YOMI Bisacodyl (Dulcolax) 10 mg MA QDAY PRN PRN Reason: Constipation Enoxaparin Sodium (Lovenox) 30 mg SUB-Q QDAY YOMI Sodium Chloride (Nacl 0.9% 1000 Ml) 1,000 mls @ 250 mls/hr IV ONCE ONE Stop: 01/16/19 01:03 Last Admin: 01/15/19 21:25 Dose: 250 mls/hr Documented by: Ondansetron HCl (Zofran) 4 mg IV Q8H PRN PRN Reason: Nausea And Vomiting Promethazine HCl (Phenergan) 25 mg MA Q6H PRN PRN Reason: Nausea And Vomiting Sodium Chloride (Sodium Chloride Flush Syringe 10 Ml) 10 ml IV PRN PRN PRN Reason: LINE FLUSH Review of Systems ROS unobtainable: due to mental status Exam - Physical Exam Narrative exam: Physical exam General appearance: Present: No acute distress, awake, unable to determine orientation, older adult -[place] female - EENT Eyes: Present: PERRL, EOM intact ENT: hearing intact, missing teeth - Neck Neck: Present: supple, normal ROM - Respiratory Respiratory effort: Non-labored Respiratory: CTA bi laterally - Cardiovascular Heart rate: 97 (bpm) Rhythm: SR Heart Sounds: Present: S1 & S2. Absent: rub, click - Extremities Extremities: no ischemia, pulses intact, - Peripheral Assessment Peripheral Pulses: within normal limits - Abdominal General gastrointestinal: soft, non-tender, normal bowel sounds - Integumentary Integumentary: Present: warm, dry - Musculoskeletal Musculoskeletal: generalized weakness -Neurological Neurological: altered mentation - Psychiatric Psychiatric: Unable to assess - Constitutional Vitals: Temp Pulse Resp BP Pulse Ox 97.4 F L 97 H 21 139/64 100 01/15/19 19:35 01/16/19 00:05 01/16/19 00:05 01/16/19 00:05 01/16/19 00:05 Results - Labs CBC & Chem 7: 01/15/19 19:15 01/15/19 20:07 Labs: Laboratory Last Values WBC 11.7 K/mm3 (4.5-11.0) H 01/15/19 19:15 RBC 5.10 M/mm3 (3.65-5.03) H 01/15/19 19:15 Hgb 14.3 gm/dl (10.1-14.3) 01/15/19 19:15 Hct 43.9 % (30.3-42.9) H 01/15/19 19:15 MCV 86 fl (79-97) 01/15/19 19:15 MCH 28 pg (28-32) 01/15/19 19:15 MCHC 33 % (30-34) 01/15/19 19:15 RDW 16.5 % (13.2-15.2) H 01/15/19 19:15 Plt Count 187 K/mm3 (140-440) 01/15/19 19:15 Lymph % (Auto) Upstairs Maid 01/15/19 19:15 [place] % (Auto) Upstairs Maid 01/15/19 19:15 Eos % (Auto) Upstairs Maid 01/15/19 19:15 Baso % (Auto) Upstairs Maid 01/15/19 19:15 Lymph # Upstairs Maid 01/15/19 19:15 [place] # Upstairs Maid 01/15/19 19:15 Eos # Upstairs Maid 01/15/19 19:15 Baso # Upstairs Maid 01/15/19 19:15 Seg Neutrophils % Upstairs Maid 01/15/19 19:15 Seg Neutrophils # Upstairs Maid 01/15/19 19:15 PT 11.3 Sec. (12.2-14.9) L 01/15/19 19:15 INR 0.85 (0.87-1.13) L 01/15/19 19:15 APTT 20.0 Sec. (24.2-36.6) L 01/15/19 19:15 15.0 Sec. (15.1-19.6) L 01/15/19 19:15 Sodium 143 mmol/L (137-145) 01/15/19 20:07 Potassium 4.4 mmol/L (3.6-5.0) 01/15/19 20:07 Chloride 110.8 mmol/L (98-107) H 01/15/19 20:07 Carbon Dioxide 22 mmol/L (22-30) 01/15/19 20:07 15 mmol/L 01/15/19 20:07 BUN 20 mg/dL (7-17) H 01/15/19 20:07 1.2 mg/dL (0.7-1.2) 01/15/19 20:07 Estimated GFR 53 ml/min 01/15/19 20:07 17 % 01/15/19 20:07 Glucose 128 mg/dL (65-100) H 01/15/19 20:07 POC Glucose 132 (70-105) H 01/15/19 19:53 Calcium 12.2 mg/dL (8.4-10.2) H* 01/15/19 20:07 < 0.010 ng/mL (0.00-0.029) 01/15/19 20:07 - Imaging and Cardiology Chest x-ray: report reviewed (No significant pulmonary or pleural abnormality. No pneumothorax. ), image reviewed Imaging and Cardiology: CTA Neck: Finding: There is irregular calcified plaque involving proximal right internal carotid artery with marked, greater than 90% stenosis at the origin. Flow is seen more distally w ithin the right cervical ICA. There is mild plaque involving the right common carotid artery without significant stenosis. There is also calcified plaque involving the proximal left ICA with with mild, approximately 30-40% stenosis by NASCET criteria. There is a small focus of calcification at the distal most left cervical ICA without stenosis. There is also mild plaque along the mid to distal left common carotid artery with mild, less than 50% stenosis. There is calcification at the origin of the left vertebral artery with marked stenosis at. However, flow is seen within the more distal left vertebral artery without further stenosis. There also appears to be a marked stenosis of the origin of the right vertebral artery with significant small caliber of the remaining cervical right vertebral artery. There is mild calcification involving the aortic arch. There is no significant focal stenosis of the arch vessels. Impression: There is irregular calcified plaque involving proximal right ICA with marked, greater than 90% stenosis by NASCET criteria. There is also calcification involving proximal left ICA with 30-40% stenosis. There is marked stenosis of the origins of the vertebral arteries bilaterally. Furthermore, there is notable decrease caliber of the more distal right vertebral artery. CTA Head: Findings: No previous exams available for comparison. There is developmental origin of the posterior cerebral arteries bilaterally. 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 There is no significant focal stenosis involving the basilar or distal internal carotid arteries at. The proximal cerebral branches also demonstrate appropriate caliber without focal narrowing. The motion obscures evaluation of some the more distal branches is no clear CTA evidence of occlusion. Furthermore, no intracranial aneurysm is appreciated. The dural venous sinuses opacify with contrast. There is extensive cerebral white matter disease which correlates with the earlier CT. 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 There is no significant focal stenosis involving the visualized intracranial vessels. CT Head: Findings: BRAIN / INTRACRANIAL CONTENTS: No acute hemorrhage, mass effect, midline shift, or hydrocephalus. No appreciable acute large territorial or lacunar infarct. No chronic infarct. Age-commensurate ventricular and cisternal/sulcal prominence, stable. Again seen are patchy and confluent hypodensities in the subcortical and periventricular white matter that likely represent chronic microvascular changes. ORBITS: No significant abnormality of visualized orbits. SINUSES / MASTOIDS: No significant abnormality of visualized sinuses and mastoid air cells. ADDITIONAL FINDINGS: None. Impression: 1. No acute intracranial abnormality. Assessment and Plan Assessment and plan: 78-year-old -[place] female who resides in a [facility] with history of dementia, syncope, seizure, coronary artery disease present [facility] ED with complaints of altered mental status. Pt was placed outside in wheelchair around 4pm yesterday. She was later found to be more confused in wheelchair by [facility] staff. At baseline pt is non-verbal. Review of medical records shows that she was admitted in November with similar complaints. Tele-neurology (Dr. Carvajal) was notified and elevated pt, recommendations appreciated. Pt is not a candidate for TPA due to unknown last known time. CVA r/u Syncope -Stroke protocol -Neurology consulted (Dr. Trinidad) -Pt has hx severe right internal carotid artery stenosis (greater than 90%) and left-sided 50% internal carotid artery narrowing.Daughter had declined CA by vascular surgery - CTA Neck showed irregular calcified plaque involving proximal right ICA greater than 90% stenosis; calcification involving proximal left ICA with 30-40% stenosis; marked stenosis of the origins of the vertebral arteries bilaterally. 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; There is no significant focal stenosis involving the visualized intracranial vessels - CT Head negative -MRI Brain pending -ASA per rectum as per tele-neurology recs appreciated -PT/OT eval pending Acute encephalopathy -Likely metabolic -WBC on admission 11.7 -Temp 97.4 -UA, BC, UC pending -CXR unrevealing for acute cardiopulmonary abnormalities -Neuro checks Hypercalcemia -Calcium on admission 12.2 -Hydrate with IVF -Continue to monitor electrolytes DVT PPX -on Lovenox Dementia -She was to have dementia workup as outpatient; is unsure whether or not this was completed -Per neurology's recommendation in 11/2018 avoid donepezil since it can trigger seizures Hx Seizures -On Depakote -Depakote level pending -On seizure cautions -EEG on 12/11/18 showed Abnormal waking and drowsy EEG due to slowing of the background suggesting a diffuse process. Correlation with imaging is advised. This EEG does not exclude epilepsy of partial onset. Up to 4 EEGs over several months may be needed to capture interictal epileptiform activity. - Will defer to Neurology if repeat EEG is needed Advance Directives: No VTE prophylaxis?: Chemical Plan of care discussed with patient/family: Yes <YADIRA HINOJOSA - Last Filed: 01/16/19 06:10> History of Present Illness Date of admission: 01/15/19 23:44 Medications and Allergies Active Meds: Active Medications Acetaminophen (Tylenol) 650 mg PO Q4H PRN PRN Reason: Pain, Mild (1-3) Aspirin (Aspirin) 300 mg MA QDAY YOMI Atorvastatin Calcium (Lipitor) 40 mg PO QHS YOMI Bisacodyl (Dulcolax) 10 mg MA QDAY PRN PRN Reason: Constipation Divalproex Sodium (Depakote Dr) 125 mg PO QHS YOMI Enoxaparin Sodium (Lovenox) 30 mg SUB-Q QDAY YOMI Sodium Chloride (Nacl 0.9% 1000 Ml) 1,000 mls @ 100 mls/hr IV DIRECT YOMI Stop: 01/16/19 12:00 Last Admin: 01/16/19 01:36 Dose: 100 mls/hr Documented by: Olanzapine (Zyprexa) 2.5 mg PO QDAY YOMI Ondansetron HCl (Zofran) 4 mg IV Q8H PRN PRN Reason: Nausea And Vomiting Promethazine HCl (Phenergan) 25 mg MA Q6H PRN PRN Reason: Nausea And Vomiting Sodium Chloride (Sodium Chloride Flush Syringe 10 Ml) 10 ml IV PRN PRN PRN Reason: LINE FLUSH Exam - Constitutional Vitals: Temp Pulse Resp BP Pulse Ox 97.4 F L 97 H 20 139/64 100 01/15/19 19:35 01/16/19 00:48 01/16/19 01:11 01/16/19 00:05 01/16/19 00:05 Results - Labs CBC & Chem 7: 01/15/19 19:15 01/15/19 20:07 Labs: Laboratory Last Values WBC 11.7 K/mm3 (4.5-11.0) H 01/15/19 19:15 RBC 5.10 M/mm3 (3.65-5.03) H 01/15/19 19:15 Hgb 14.3 gm/dl (10.1-14.3) 01/15/19 19:15 Hct 43.9 % (30.3-42.9) H 01/15/19 19:15 MCV 86 fl (79-97) 01/15/19 19:15 MCH 28 pg (28-32) 01/15/19 19:15 MCHC 33 % (30-34) 01/15/19 19:15 RDW 16.5 % (13.2-15.2) H 01/15/19 19:15 Plt Count 187 K/mm3 (140-440) 01/15/19 19:15 Lymph % (Auto) Upstairs Maid 01/15/19 19:15 [place] % (Auto) Upstairs Maid 01/15/19 19:15 Eos % (Auto) Upstairs Maid 01/15/19 19:15 Baso % (Auto) Upstairs Maid 01/15/19 19:15 Lymph # Upstairs Maid 01/15/19 19:15 [place] # Upstairs Maid 01/15/19 19:15 Eos # Upstairs Maid 01/15/19 19:15 Baso # Upstairs Maid 01/15/19 19:15 Seg Neutrophils % Upstairs Maid 01/15/19 19:15 Seg Neutrophils # Upstairs Maid 01/15/19 19:15 PT 11.3 Sec. (12.2-14.9) L 01/15/19 19:15 INR 0.85 (0.87-1.13) L 01/15/19 19:15 APTT 20.0 Sec. (24.2-36.6) L 01/15/19 19:15 15.0 Sec. (15.1-19.6) L 01/15/19 19:15 Sodium 143 mmol/L (137-145) 01/15/19 20:07 Potassium 4.4 mmol/L (3.6-5.0) 01/15/19 20:07 Chloride 110.8 mmol/L (98-107) H 01/15/19 20:07 Carbon Dioxide 22 mmol/L (22-30) 01/15/19 20:07 15 mmol/L 01/15/19 20:07 BUN 20 mg/dL (7-17) H 01/15/19 20:07 1.2 mg/dL (0.7-1.2) 01/15/19 20:07 Estimated GFR 53 ml/min 01/15/19 20:07 17 % 01/15/19 20:07 Glucose 128 mg/dL (65-100) H 01/15/19 20:07 POC Glucose 132 (70-105) H 01/15/19 19:53 Calcium 12.2 mg/dL (8.4-10.2) H* 01/15/19 20:07 < 0.010 ng/mL (0.00-0.029) 01/15/19 20:07 Valproic Acid 8.3 ug/mL (50-100) L 01/16/19 02:03 Assessment and Plan Assessment and plan: 78 year old woman with dementia, CAD, seizure was brought to ER for confusion. Carotid stenosis is old, daughter refused surgery. Her confusion is probably due to hypercalcemia, unknown etiology at this point, ?underlying malignancy, breast exam benign, check LFT. Agree with above workup, fluids
[2019-01-16] MEDS ORDERED: NACL 0.9% 1000 ML 1,000 ML IV SCH (01:00)
--- NOTE | 2019-01-16 02:50 | XRay Report ---
CHEST 1 VIEW INDICATION / CLINICAL INFORMATION: metabolic infection workup. COMPARISON: 12/09/2018 FINDINGS: SUPPORT DEVICES: None. HEART / MEDIASTINUM: No significant abnormality. LUNGS / PLEURA: No significant pulmonary or pleural abnormality. No pneumothorax. ADDITIONAL FINDINGS: No significant additional findings. IMPRESSION: 1. No acute findings. Signer Name: Tano Gonzales MD Signed: 01/16/2019 2:45 AM Workstation Name: [email or web address]
[2019-01-16 08:30] LABS: Alanine Aminotransferase 23 units/L (7-56); Albumin 3.7 g/dL (3.9-5)
[2019-01-16 08:36] LABS: Bilirubin,Direct < 0.2 mg/dL (0-0.2)
[2019-01-16] MEDS: LOVENOX SUB-Q SCH (10:13)
[2019-01-16] MEDS: ASPIRIN PR SCH (10:13)
[2019-01-16 15:30] LABS: Bilirubin,Urine NEG (Negative); Blood,Urine NEG (Negative); Color,Urine Yellow (Yellow); Protein,Urine <15 mg/dL mg/dL (Negative); Urobilinogen,Urine < 2.0 mg/dL (<2.0)
--- NOTE | 2019-01-16 15:40 | Progress Note ---
Assessment and Plan Assessment and plan: Patient is a 78-year-old -[place] woman who resides in a longterm with history of dementia, syncope, seizure, coronary artery disease presents to [facility] ED with complaints of altered mental status. Pt was placed outside in wheelchair around 4pm yesterday. She was later found to be more confused in wheelchair by longterm staff. At baseline pt is non-verbal. Review of medical records shows that she was admitted in November with similar complaints. Tele-neurology (Dr. Carvajal) was notified and elevated pt, recommendations appreciated. Pt is not a candidate for TPA due to unknown last known time. * CT head Impression: 1. No acute intracranial abnormality. * CTA neck Impression: There is irregular calcified plaque involving proximal right ICA with marked, greater than 90% stenosis by NASCET criteria. There is also calcification involving proximal left ICA with 30-40% stenosis. There is marked stenosis of the origins of the vertebral arteries bilaterally. Furthermore, there is notable decrease caliber of the more distal right vertebral artery. CVA suspected Syncope -Stroke protocol -Neurology consulted (Dr. Trinidad) -Pt has hx severe right internal carotid artery stenosis (greater than 90%) and left-sided 50% internal carotid artery narrowing.Daughter had declined CA by vascular surgery -CTA Neck showed irregular calcified plaque involving proximal right ICA greater than 90% stenosis; calcification involving proximal left ICA with 30-40% stenosis; marked stenosis of the origins of the vertebral arteries bilaterally. 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; There is no significant focal stenosis involving the visualized intracranial vessels - CT Head negative -MRI Brain pending -ASA per rectum as per tele-neurology recs appreciated -PT/OT eval pending -Vascular surgery consult Acute encephalopathy -Likely metabolic -WBC on admission 11.7 -Temp 97.4 -UA, BC, UC pending -CXR unrevealing for acute cardiopulmonary abnormalities -Neuro checks Hypercalcemia -Calcium on admission 12.2 -Hydrate with IVF -Continue to monitor electrolytes DVT PPX -on Lovenox Dementia -She was to have dementia workup as outpatient; is unsure whether or not this was completed -Per neurology's recommendation in 11/2018 avoid donepezil since it can trigger seizures Hx Seizures -On Depakote -Depakote level pending -On seizure cautions -EEG on 12/11/18 showed Abnormal waking and drowsy EEG due to slowing of the background suggesting a diffuse process. Correlation with imaging is advised. This EEG does not exclude epilepsy of partial onset. Up to 4 EEGs over several months may be needed to capture interictal epileptiform activity. - Will defer to Neurology if repeat EEG is needed History Interval history: Patient was seen and examined. Follow-up on current diagnosis of AMS. No overnight events reported to me. Imaging, nursing note, chart, labs and old chart reviewed. Hospitalist Physical - Physical exam Narrative exam: Gen: chronically disable appearing, nonverbal HEENT: NCAT, EOMI, PERRL, OP missing teeth, Neck: supple, no adenopathy, no thyromegaly, no JVD CVS/Heart: RRR, normal S1S2, pulses present bilaterally Chest/Lungs: CTA B, Symmetrical chest expansion, good air entry bilaterally GI/Abdomen: soft, NTND, good bowel sounds, no guarding or rebound /Bladder: no suprapubic tenderness, no CVA or paraspinal tenderness Extermity/Skin: no c/c/e, no obvious rash MSK: FROM x 4 Neuro: CN 2-12 grossly intact, no new focal deficits Psych: calm - Constitutional Vitals: Temp Pulse Resp BP Pulse Ox 98.1 F 60 19 155/85 80 L 01/16/19 12:20 01/16/19 12:20 01/16/19 12:20 01/16/19 12:20 01/16/19 12:18 Results - Labs CBC & Chem 7: 01/15/19 19:15 01/15/19 20:07 Labs: Laboratory Last Values WBC 11.7 K/mm3 (4.5-11.0) H 01/15/19 19:15 RBC 5.10 M/mm3 (3.65-5.03) H 01/15/19 19:15 Hgb 14.3 gm/dl (10.1-14.3) 01/15/19 19:15 Hct 43.9 % (30.3-42.9) H 01/15/19 19:15 MCV 86 fl (79-97) 01/15/19 19:15 MCH 28 pg (28-32) 01/15/19 19:15 MCHC 33 % (30-34) 01/15/19 19:15 RDW 16.5 % (13.2-15.2) H 01/15/19 19:15 Plt Count 187 K/mm3 (140-440) 01/15/19 19:15 Lymph % (Auto) [place] Torch Operator 01/15/19 19:15 [place] % (Auto) [place] Torch Operator 01/15/19 19:15 Eos % (Auto) [place] Torch Operator 01/15/19 19:15 Baso % (Auto) [place] Torch Operator 01/15/19 19:15 Lymph # [place] Torch Operator 01/15/19 19:15 [place] # Annealing Torch Operator 01/15/19 19:15 Eos # [place] Torch Operator 01/15/19 19:15 Baso # [place] Torch Operator 01/15/19 19:15 Seg Neutrophils % [place] Torch Operator 01/15/19 19:15 Seg Neutrophils # [place] Torch Operator 01/15/19 19:15 PT 11.3 Sec. (12.2-14.9) L 01/15/19 19:15 INR 0.85 (0.87-1.13) L 01/15/19 19:15 APTT 20.0 Sec. (24.2-36.6) L 01/15/19 19:15 15.0 Sec. (15.1-19.6) L 01/15/19 19:15 Sodium 143 mmol/L (137-145) 01/15/19 20:07 Potassium 4.4 mmol/L (3.6-5.0) 01/15/19 20:07 Chloride 110.8 mmol/L (98-107) H 01/15/19 20:07 Carbon Dioxide 22 mmol/L (22-30) 01/15/19 20:07 15 mmol/L 01/15/19 20:07 BUN 20 mg/dL (7-17) H 01/15/19 20:07 1.2 mg/dL (0.7-1.2) 01/15/19 20:07 Estimated GFR 53 ml/min 01/15/19 20:07 17 % 01/15/19 20:07 Glucose 128 mg/dL (65-100) H 01/15/19 20:07 POC Glucose 132 (70-105) H 01/15/19 19:53 Calcium 12.2 mg/dL (8.4-10.2) H* 01/15/19 20:07 0.20 mg/dL (0.1-1.2) 01/16/19 07:07 < 0.2 mg/dL (0-0.2) 01/16/19 07:07 0.0 mg/dL 01/16/19 07:07 AST 25 units/L (5-40) 01/16/19 07:07 ALT 23 units/L (7-56) 01/16/19 07:07 111 units/L (35-129) 01/16/19 07:07 < 0.010 ng/mL (0.00-0.029) 01/15/19 20:07 7.3 g/dL (6.3-8.2) 01/16/19 07:07 3.7 g/dL (3.9-5) L 01/16/19 07:07 1.0 % 01/16/19 07:07 Yellow (Yellow) 01/16/19 14:32 Clear (Clear) 01/16/19 14:32 7.0 (5.0-7.0) 01/16/19 14:32 Ur Specific [place] 1.021 (1.003-1.030) 01/16/19 14:32 <15 mg/dl mg/dL (Negative) 01/16/19 14:32 Neg mg/dL (Negative) 01/16/19 14:32 Neg mg/dL (Negative) 01/16/19 14:32 Neg (Negative) 01/16/19 14:32 Neg (Negative) 01/16/19 14:32 Neg (Negative) 01/16/19 14:32 < 2.0 mg/dL (<2.0) 01/16/19 14:32 Ur Leukocyte Esterase Sm (Negative) 01/16/19 14:32 1.0 /HPF (0.0-6.0) 01/16/19 14:32 4.0 /HPF (0.0-6.0) 01/16/19 14:32 U Epithel Cells (Auto) 2.0 /HPF (0-13.0) 01/16/19 14:32 Valproic Acid 8.3 ug/mL (50-100) L 01/16/19 02:03 Active Medications - Current Medications Current Medications: Generic Name Dose Route Start Last Admin Trade Name Freq PRN Reason Stop Dose Admin Acetaminophen 650 mg 01/16/19 00:22 Tylenol PO Q4H PRN Pain, Mild (1-3) Aspirin 300 mg 01/16/19 10:00 01/16/19 10:13 Aspirin IN 300 mg QDAY YOMI Administration Atorvastatin Calcium 40 mg 01/16/19 22:00 Lipitor PO QHS YOMI Bisacodyl 10 mg 01/16/19 00:22 Dulcolax IN QDAY PRN Constipation Divalproex Sodium 125 mg 01/16/19 22:[address] PO QHS YOMI Enoxaparin Sodium 30 mg 01/16/19 10:00 01/16/19 10:13 Lovenox SUB-Q 30 mg QDAY YOMI Administration Olanzapine 2.5 mg 01/16/19 10:00 01/16/19 10:13 Zyprexa PO 2.5 mg QDAY YOMI Administration Ondansetron HCl 4 mg 01/16/19 00:22 Zofran IV Q8H PRN Nausea And Vomiting Promethazine HCl 25 mg 01/16/19 00:22 Phenergan IN Q6H PRN Nausea And Vomiting Sodium Chloride 10 ml 01/16/19 00:22 Sodium Chloride Flush Syringe 10 Ml IV PRN PRN LINE FLUSH Nutrition/Malnutrition Assess - Dietary Evaluation Nutrition/Malnutrition Findings: Nutrition Notes Start: 01/16/19 12:45 Freq: Status: Active Protocol: Document 01/16/19 12:45 RM (Rec: 01/16/19 12:51 RM [id number]) Nutrition Notes Need for Assessment generated from: MD Order Initial or Follow up Brief Note Current Diagnosis Coronary Artery Disease Other Pertinent Diagnosis AMS, Hx dementia, nonverbal, Hx seizures Current Diet GI soft Labs/Tests Reviewed Pertinent Medications Reviewed Height 5 ft Weight 48 kg [place] Body Weight (kg) 45.45 BMI 20.6 Subjective/Other Information Consulted for poor oral intake . No diet in place earlier today . GI soft diet ordered later today. Pt asleep at time of visit. No family present. Burn Absent Trauma Absent Nutrition Intervention Follow-Up By: 01/18/19 Additional Comments Follow for PO intakes
--- NOTE | 2019-01-16 15:53 | Progress Note ---
Subjective Date of service: 01/16/19 Interval history: very complicated old history of prior ICA stenosis but also there is severe bitemporal lobe atrophy very marked at this time the patient is poorly responsive not speaking or following commands... does move both sides well did read in the notes the family declines aggressive care for patient ie catheter treatment of the right ICA stenosis I id comment on the severe righrt brain atrophy likely vascular wetiology plan EEG to be sure she is not have recrrent seizure age/ dementing/etc see orders Objective - Vital Sign Vital Signs - 12hr 01/16/19 01/16/19 01/16/19 04:56 07:44 10:07 Temperature 98.1 F 97.6 F Pulse Rate 102 H 75 Pulse Rate [ Apical] Pulse Rate [ Left Radial] Pulse Rate [ Right Radial] Respiratory 18 18 Rate Blood Pressure 172/87 163/59 184/94 Blood Pressure [Left] O2 Sat by Pulse 99 91 Oximetry 01/16/19 01/16/19 01/16/19 11:46 12:18 12:20 Temperature 98.1 F Pulse Rate 60 60 Pulse Rate [ 101 H Apical] Pulse Rate [ 101 H Left Radial] Pulse Rate [ 101 H Right Radial] Respiratory 19 19 Rate Blood Pressure 157/85 Blood Pressure 155/85 [Left] O2 Sat by Pulse 98 80 L Oximetry - Laboratory Findings CBC and BMP: 01/15/19 19:15 01/15/19 20:07 Abnormal Lab Findings: Abnormal Labs 01/15/19 01/15/19 01/15/19 19:15 19:15 19:15 WBC 11.7 H RBC 5.10 H Hct 43.9 H RDW 16.5 H PT 11.3 L INR 0.85 L APTT 20.0 L Thrombin Time 15.0 L Chloride BUN Glucose POC Glucose Calcium Albumin Valproic Acid 01/15/19 01/15/19 01/16/19 19:53 20:07 02:03 WBC RBC Hct RDW PT INR APTT Thrombin Time Chloride 110.8 H BUN 20 H Glucose 128 H POC Glucose 132 H Calcium 12.2 H* Albumin Valproic Acid 8.3 L 01/16/19 07:07 WBC RBC Hct RDW PT INR APTT Thrombin Time Chloride BUN Glucose POC Glucose Calcium Albumin 3.7 L Valproic Acid
--- NOTE | 2019-01-17 00:19 | Consultation ---
LOCATION: Room #476. HISTORY OF PRESENT ILLNESS: This is a 78-year-old black female who presents to [facility] with history of altered mental status. Reviewing the history we have on this patient, she was evaluated by tele neurology and the patient was evaluated and what I am reading the patient did not want any further interventions and was admitted to the hospital for further workup, which showed an old right ICA stenosis of about 90%. They declined a further workup for this and she may have had a thromboembolic event because of high-grade right ICA stenosis. CAT of the neck and head were positive for right ICA and right middle cerebral artery occlusive disease. Since admission, the patient has been not very responsive according to the nurses, not speaking, not very talkative and no family is currently available to obtain a cross history from. She has no known allergies. I did review CT of the head, which was obtained on 01/15/2019 as reasonable amount of movement artifact, large dilation of both ventricular systems, temporal horns really quite massively, also cortical atrophy and extreme degree of loss of the cortical sulcal pattern noted over the right cerebral hemisphere compared to the left, although there is bilateral frontal cortical atrophy posteriorly. I am impressed with the degree of cortical atrophy over the temporal lobe and within the parietal lobe structures very suggestive of area of widespread watershed ischemia within the right middle cerebral, but as well there are age-related changes present in the left hemisphere. PHYSICAL EXAMINATION: My examination shows the patient to have a blood pressure presently 184/94. She is afebrile with temperature 98.1, pulse rate is 60. The patient's PaO2 is 98%. On examination, she does not open her eyes very well. She does respond slightly to touch, but she does not move the right side as well as the left. She clearly is not speaking, not swallowing. She has very limited mobility. She has a gaze preference to the right when the eyes are opened. Pupils equal, round, reactive to light. Cranial nerves are intact, although obviously commenting about her hearing. Fund of information and degree of orientation are impossible since she is not speaking and is mute. IMPRESSION: This patient's clinical evaluation is very difficult because obviously she has had very profound and severe bitemporal lobe atrophy with marked dilation of the temporal horns. This is very suggestive of severe dementing illness with brain atrophy, but I am also impressed with the degree of loss of the cortical and white matter in the right hemisphere, which seems to match with this right ICA stenosis of 90%. Given her age and other old factors, it seems that her prognosis is not very good. This seems like a recurrent stroke. Clearly, she has not returned to baseline since being admitted. Plan to get an EEG on the patient further assess her situation. JOB# [id number] LAKEISHA/AMARILIS
[2019-01-17 04:32] LABS: Chol/HDL Ratio 2.47 %
[2019-01-17] MEDS: ASPIRIN PR SCH (09:41)
[2019-01-17] MEDS: LOVENOX SUB-Q SCH (09:41)
--- NOTE | 2019-01-17 11:20 | Consultation ---
History of Present Illness - Reason for Consult Consult date: 01/17/19 carotid stenosis - History of Present Illness 78-year-old -Malagasy female who resides in a half-way with history of dementia, syncope, seizure, coronary artery disease present [facility] ED with complaints of altered mental status. At baseline pt is non verbal and unable to provide history. History is taken from EMS report and medical records. Pt was placed outside in wheelchair around 4pm yesterday. She was later found to be more confused in wheelchair by half-way staff. EMS was called, and she was transferred to our facility for further evaluation and treatment. CTA demonstrates greater than 90% right ELEAZAR and less than 50% left ELEAZAR with vertebral disease. Consulted on 12/12/18 this year for similar issues. At that time, had discussion to determine what the goal of care was and the goal was to keep patient comfortable. I contacted Ms. Pickard the patient's daughter again, and she told me this was still the case. Not interested in surgical solution, which is reasonable given the patient's severe advancing dementia and limited quality of life. Past History Past Medical History: seizures, other (dementia, syncope) Past Surgical History: No surgical history Social history: other (lives in half-way) Family history: no significant family history Medications and Allergies Allergies Allergy/AdvReac Type Severity Reaction Status Date / Time No Known Allergies Allergy Verified 12/09/18 19:05 Home Medications Medication Instructions Recorded Confirmed Last Taken Type AtorvaSTATin [Lipitor] 20 mg PO QHS 12/10/18 01/15/19 3 Days Ago History ~12/07/18 OLANzapine [ZyPREXA] 2.5 mg PO QDAY 12/10/18 01/15/19 3 Days Ago History ~12/07/18 Trazodone HCl 150 mg PO QHS 12/10/18 01/15/19 3 Days Ago History ~12/07/18 Divalproex [Caden BRYANT] 125 mg PO QHS 01/15/19 01/15/19 Unknown History Active Meds: Active Medications Acetaminophen (Tylenol) 650 mg PO Q4H PRN PRN Reason: Pain, Mild (1-3) Aspirin (Aspirin) 300 mg NH QDAY [facility] Last Admin: 01/17/19 09:41 Dose: 300 mg Documented by: Atorvastatin Calcium (Lipitor) 40 mg PO QHS [facility] Last Admin: 01/16/19 22:27 Dose: 40 mg Documented by: Bisacodyl (Dulcolax) 10 mg NH QDAY PRN PRN Reason: Constipation Divalproex Sodium (Depakote Dr) 125 mg PO QHS [facility] Last Admin: 01/16/19 22:27 Dose: 125 mg Documented by: Enoxaparin Sodium (Lovenox) 30 mg SUB-Q QDAY [facility] Last Admin: 01/17/19 09:41 Dose: 30 mg Documented by: Olanzapine (Zyprexa) 2.5 mg PO QDAY [facility] Last Admin: 01/17/19 09:43 Dose: 2.5 mg Documented by: Ondansetron HCl (Zofran) 4 mg IV Q8H PRN PRN Reason: Nausea And Vomiting Promethazine HCl (Phenergan) 25 mg NH Q6H PRN PRN Reason: Nausea And Vomiting Sodium Chloride (Sodium Chloride Flush Syringe 10 Ml) 10 ml IV PRN PRN PRN Reason: LINE FLUSH Review of Systems ROS unobtainable: due to mental status Exam - Constitutional Vitals: Temp Pulse Resp BP Pulse Ox 98.0 F 92 H 20 164/68 99 01/17/19 04:22 01/17/19 04:22 01/17/19 04:22 01/17/19 04:22 01/17/19 04:22 General appearance: Present: no acute distress - EENT ENT: hearing intact - Respiratory Respiratory effort: normal - Extremities Extremities: normal temperature, normal color - Psychiatric Psychiatric: agitated (repeats some phrases to herself, AxO x 0) - Neurologic Neurologic: other (does not respond enough to provide neuro exam) Results - Labs CBC & Chem 7: 01/15/19 19:15 01/15/19 20:07 Labs: Abnormal lab results 01/17/19 Range/Units 03:33 HDL Cholesterol 72 H (40-59) mg/dL - Imaging and Cardiology CT Scan - head: report reviewed, image reviewed Assessment and Plan 78-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 Patient has severe right internal carotid artery stenosis (greater than 90%) and left-sided less than 50% internal carotid artery narrowing. Due to the patient's severe advancing dementia and baseline inability to respond appropriately, she is a very suboptimal candidate for any revascularization. I contacted the patient's daughter who does not want her mother to undergo any surgical procedures (endarterectomy or carotid stenting). I agree with the daughter believe the benefit from such procedures is inconsequential given the severe advancing dementia and patient's limited quality of life. Recommend optimal medical therapy (antiplatelet and statin therapy).
--- NOTE | 2019-01-17 11:41 | Progress Note ---
Assessment and Plan Assessment and plan: Patient is a 78-year-old -[place] Islander woman who resides in a long term with history of dementia, syncope, seizure, coronary artery disease presents to [facility] ED with complaints of altered mental status. Pt was placed outside in wheelchair around 4pm yesterday. She was later found to be more confused in wheelchair by long term staff. At baseline pt is non-verbal. Review of medical records shows that she was admitted in November with similar complaints. Tele-neurology (Dr. Carvajal) was notified and elevated pt, recommendations appreciated. Pt is not a candidate for TPA due to unknown last known time. * CT head Impression: 1. No acute intracranial abnormality. * CTA neck Impression: There is irregular calcified plaque involving proximal right ICA with marked, greater than 90% stenosis by NASCET criteria. There is also calcification involving proximal left ICA with 30-40% stenosis. There is marked stenosis of the origins of the vertebral arteries bilaterally. Furthermore, there is notable decrease caliber of the more distal right vertebral artery. CVA suspected Syncope -Stroke protocol -Neurology consulted (Dr. Trinidad) -Pt has hx severe right internal carotid artery stenosis (greater than 90%) and left-sided 50% internal carotid artery narrowing.Daughter had declined CA by vascular surgery -CTA Neck showed irregular calcified plaque involving proximal right ICA greater than 90% stenosis; calcification involving proximal left ICA with 30-40% stenosis; marked stenosis of the origins of the vertebral arteries bilaterally. 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; There is no significant focal stenosis involving the visualized intracranial vessels - CT Head negative -MRI Brain pending -ASA per rectum as per tele-neurology recs appreciated -PT/OT eval pending -Vascular surgery consulted, input noted, family not interest in surgery Acute encephalopathy -Likely metabolic -WBC on admission 11.7 -Temp 97.4 -UA, BC, UC pending -CXR unrevealing for acute cardiopulmonary abnormalities -Neuro checks Hypercalcemia -Calcium on admission 12.2 -Hydrate with IVF -Continue to monitor electrolytes DVT PPX -on Lovenox Dementia -She was to have dementia workup as outpatient; is unsure whether or not this was completed -Per neurology's recommendation in 11/2018 avoid donepezil since it can trigger seizures Hx Seizures -On Depakote -Depakote level pending -On seizure cautions -EEG on 12/11/18 showed Abnormal waking and drowsy EEG due to slowing of the background suggesting a diffuse process. Correlation with imaging is advised. This EEG does not exclude epilepsy of partial onset. Up to 4 EEGs over several months may be needed to capture interictal epileptiform activity. - Will defer to Neurology if repeat EEG is needed Disposition: continue inpatient care, mri pending, anticipate discharge tomorrow. History Interval history: Patient was seen and examined. Follow-up on current diagnosis of AMS. No overnight events reported to me. Imaging, nursing note, chart, labs and old c esteves reviewed. Hospitalist Physical - Physical exam Narrative exam: Gen: chronically disable appearing, nonverbal HEENT: NCAT, EOMI, PERRL, OP missing teeth, Neck: supple, no adenopathy, no thyromegaly, no JVD CVS/Heart: RRR, normal S1S2, pulses present bilaterally Chest/Lungs: CTA B, Symmetrical chest expansion, good air entry bilaterally GI/Abdomen: soft, NTND, good bowel sounds, no guarding or rebound /Bladder: no suprapubic tenderness, no CVA or paraspinal tenderness Extermity/Skin: no c/c/e, no obvious rash MSK: FROM x 4 Neuro: CN 2-12 grossly intact, no new focal deficits Psych: calm - Constitutional Vitals: Temp Pulse Resp BP Pulse Ox 98.0 F 92 H 20 164/68 99 01/17/19 04:22 01/17/19 04:22 01/17/19 04:22 01/17/19 04:22 01/17/19 04:22 General appearance: Present: no acute distress Results - Labs CBC & Chem 7: 01/15/19 19:15 01/15/19 20:07 Labs: Laboratory Last Values WBC 11.7 K/mm3 (4.5-11.0) H 01/15/19 19:15 RBC 5.10 M/mm3 (3.65-5.03) H 01/15/19 19:15 Hgb 14.3 gm/dl (10.1-14.3) 01/15/19 19:15 Hct 43.9 % (30.3-42.9) H 01/15/19 19:15 MCV 86 fl (79-97) 01/15/19 19:15 MCH 28 pg (28-32) 01/15/19 19:15 MCHC 33 % (30-34) 01/15/19 19:15 RDW 16.5 % (13.2-15.2) H 01/15/19 19:15 Plt Count 187 K/mm3 (140-440) 01/15/19 19:15 Lymph % (Auto) Estimating Engineer 01/15/19 19:15 [place] % (Auto) Estimating Engineer 01/15/19 19:15 Eos % (Auto) Estimating Engineer 01/15/19 19:15 Baso % (Auto) Estimating Engineer 01/15/19 19:15 Lymph # Estimating Engineer 01/15/19 19:15 [place] # Estimating Engineer 01/15/19 19:15 Eos # Estimating Engineer 01/15/19 19:15 Baso # Estimating Engineer 01/15/19 19:15 Seg Neutrophils % Estimating Engineer 01/15/19 19:15 Seg Neutrophils # Estimating Engineer 01/15/19 19:15 PT 11.3 Sec. (12.2-14.9) L 01/15/19 19:15 INR 0.85 (0.87-1.13) L 01/15/19 19:15 APTT 20.0 Sec. (24.2-36.6) L 01/15/19 19:15 15.0 Sec. (15.1-19.6) L 01/15/19 19:15 Sodium 143 mmol/L (137-145) 01/15/19 20:07 Potassium 4.4 mmol/L (3.6-5.0) 01/15/19 20:07 Chloride 110.8 mmol/L (98-107) H 01/15/19 20:07 Carbon Dioxide 22 mmol/L (22-30) 01/15/19 20:07 15 mmol/L 01/15/19 20:07 BUN 20 mg/dL (7-17) H 01/15/19 20:07 1.2 mg/dL (0.7-1.2) 01/15/19 20:07 Estimated GFR 53 ml/min 01/15/19 20:07 17 % 01/15/19 20:07 Glucose 128 mg/dL (65-100) H 01/15/19 20:07 POC Glucose 88 (70-105) 01/16/19 13:05 5.5 % (4-6) 01/17/19 03:33 Calcium 12.2 mg/dL (8.4-10.2) H* 01/15/19 20:07 0.20 mg/dL (0.1-1.2) 01/16/19 07:07 < 0.2 mg/dL (0-0.2) 01/16/19 07:07 0.0 mg/dL 01/16/19 07:07 AST 25 units/L (5-40) 01/16/19 07:07 ALT 23 units/L (7-56) 01/16/19 07:07 111 units/L (35-129) 01/16/19 07:07 < 0.010 ng/mL (0.00-0.029) 01/15/19 20:07 7.3 g/dL (6.3-8.2) 01/16/19 07:07 3.7 g/dL (3.9-5) L 01/16/19 07:07 1.0 % 01/16/19 07:07 Triglycerides 128 mg/dL (2-149) 01/17/19 03:33 Cholesterol 178 mg/dL (50-199) 01/17/19 03:33 95 mg/dL (50-130) 01/17/19 03:33 72 mg/dL (40-59) H 01/17/19 03:33 2.47 % 01/17/19 03:33 Yellow (Yellow) 01/16/19 14:32 Clear (Clear) 01/16/19 14:32 7.0 (5.0-7.0) 01/16/19 14:32 Ur Specific [place] 1.021 (1.003-1.030) 01/16/19 14:32 <15 mg/dl mg/dL (Negative) 01/16/19 14:32 Neg mg/dL (Negative) 01/16/19 14:32 Neg mg/dL (Negative) 01/16/19 14:32 Neg (Negative) 01/16/19 14:32 Neg (Negative) 01/16/19 14:32 Neg (Negative) 01/16/19 14:32 < 2.0 mg/dL (<2.0) 01/16/19 14:32 Ur Leukocyte Esterase Sm (Negative) 01/16/19 14:32 1.0 /HPF (0.0-6.0) 01/16/19 14:32 4.0 /HPF (0.0-6.0) 01/16/19 14:32 U Epithel Cells (Auto) 2.0 /HPF (0-13.0) 01/16/19 14:32 Valproic Acid 8.3 ug/mL (50-100) L 01/16/19 02:03 Active Medications - Current Medications Current Medications: Generic Name Dose Route Start Last Admin Trade Name Freq PRN Reason Stop Dose Admin Acetaminophen 650 mg 01/16/19 00:22 Tylenol PO Q4H PRN Pain, Mild (1-3) Aspirin 300 mg 01/16/19 10:00 01/17/19 09:41 Aspirin ID 300 mg QDAY YOMI Administration Atorvastatin Calcium 40 mg 01/16/19 22:00 01/16/19 22:27 Lipitor PO 40 mg QHS YOMI Administration Bisacodyl 10 mg 01/16/19 00:22 Dulcolax ID QDAY PRN Constipation Divalproex Sodium 125 mg 01/16/19 22:00 01/16/19 22:[address] PO 125 mg QHS YOMI Administration Enoxaparin Sodium 30 mg 01/16/19 10:00 01/17/19 09:41 Lovenox SUB-Q 30 mg QDAY YOMI Administration Olanzapine 2.5 mg 01/16/19 10:00 01/17/19 09:43 Zyprexa PO 2.5 mg QDAY YOMI Administration Ondansetron HCl 4 mg 01/16/19 00:22 Zofran IV Q8H PRN Nausea And Vomiting Promethazine HCl 25 mg 01/16/19 00:22 Phenergan ID Q6H PRN Nausea And Vomiting Sodium Chloride 10 ml 01/16/19 00:22 Sodium Chloride Flush Syringe 10 Ml IV PRN PRN LINE FLUSH Nutrition/Malnutrition Assess - Dietary Evaluation Nutrition/Malnutrition Findings: Nutrition Notes Start: 01/16/19 12:45 Freq: Status: Active Protocol: Document 01/16/19 12:45 RM (Rec: 01/16/19 12:51 RM [id number]) Nutrition Notes Need for Assessment generated from: MD Order Initial or Follow up Brief Note Current Diagnosis Coronary Artery Disease Other Pertinent Diagnosis AMS, Hx dementia, nonverbal, Hx seizures Current Diet GI soft Labs/Tests Reviewed Pertinent Medications Reviewed Height 5 ft Weight 48 kg [place] Body Weight (kg) 45.45 BMI 20.6 Subjective/Other Information Consulted for poor oral intake . No diet in place earlier today . GI soft diet ordered later today. Pt asleep at time of visit. No family present. Burn Absent Trauma Absent Nutrition Intervention Follow-Up By: 01/18/19 Additional Comments Follow for PO intakes
--- NOTE | 2019-01-17 18:57 | Magnetic Resonance Report ---
MR brain wo con INDICATION / CLINICAL INFORMATION: 78 years Female; stroke. TECHNIQUE: Multiplanar, multisequence MR images of the brain were obtained. COMPARISON: CT and CTA head - 01/15/2019 FINDINGS: BRAIN / INTRACRANIAL CONTENTS: Increased diffusion signal seen along the cortex of the left occipital lobe, as well as portions of the left parietal and left temporal lobes, laterally, suggesting acute/ subacute ischemia. There may be a punctate focus of ischemia in the subcentral gyral region on the ri ght, as well. These findings are most likely related to the proximal ICA stenosis on the right, resul ting in ischemia in the cerebral cortex, which has higher metabolic demand when compared with the whi te matter. 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 Mild to moderate cerebral and cerebellar atrophy. Significant hippocampal atrophy noted. There are moderate to extensive, confluent areas of increased signal intensity on FLAIR imaging in th e white matter of the cerebral hemispheres. These are nonspecific findings and may be related to micr oangiopathy (hypertension, diabetes, atherosclerosis), given the patient's age. Significant pontine disease noted as well. Otherwise, no acute ischemia, acute hemorrhage, or hydrocephalus. CRANIOCERVICAL JUNCTION: No significant abnormality. VASCULAR FLOW-VOIDS: No significant abnormality. ORBITS: No significant abnormality of visualized orbits. SINUSES / MASTOIDS: Mild mucosal thickening seen in the ethmoids. ADDITIONAL FINDINGS: None. IMPRESSION: 1. Ischemic changes suggested, as described above, most likely related to patient's right ICA stenosi s. Signer Name: Power Cintron MD, III Signed: 01/17/2019 6:53 PM Workstation Name: [id number]
[2019-01-18 08:28] LABS: Hematocrit 41.2 % (30.3-42.9); Hemoglobin 13.8 gm/dl (10.1-14.3); Mean Corpuscular HGB Conc 33 % (30-34); Mean Corpuscular Volume 85 fl (79-97); Platelet Count 180 K/mm3 (140-440); Red Blood Count 4.83 M/mm3 (3.65-5.03); Red Cell Distribution Width 15.8 % (13.2-15.2)
[2019-01-18 08:55] LABS: Alanine Aminotransferase 21 units/L (7-56); Albumin 3.4 g/dL (3.9-5); BUN/Creatinine Ratio 13; Blood Urea Nitrogen 10 mg/dL (7-17); Hemolysis Index 2
[2019-01-18] MEDS: LOVENOX SUB-Q SCH (09:39)
[2019-01-18] MEDS: ASPIRIN PR SCH (09:39)
[2019-01-19] MEDS: LOVENOX SUB-Q SCH (10:00)
[2019-01-19] MEDS: ASPIRIN PR SCH (10:01)
--- NOTE | 2019-01-19 14:59 | Progress Note ---
Assessment and Plan Assessment and plan: Patient is a 78-year-old -[place] Citizen woman who resides in a usp with history of dementia, syncope, seizure, coronary artery disease presents to [facility] ED with complaints of altered mental status. Pt was placed outside in wheelchair around 4pm yesterday. She was later found to be more confused in wheelchair by usp staff. At baseline pt is non-verbal. Review of medical records shows that she was admitted in November with similar complaints. Tele-neurology (Dr. Carvajal) was notified and elevated pt, recommendations appreciated. Pt is not a candidate for TPA due to unknown last known time. 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, dw Vascular surgery, given advanced age and dementia, she is not a candidate for surgical mgt Acute encephalopathy improving Hypercalcemia improving with IVF DVT PPX -on Lovenox Dementia cont supportive care Hx Seizures cont AEDs Disposition: dispo to SNF, daughter looking at places Hospitalist Physical - Constitutional Vitals: Temp Pulse Resp BP Pulse Ox 98.0 F 102 H 18 143/68 98 01/19/19 12:42 01/19/19 09:12 01/19/19 12:42 01/19/19 12:42 01/19/19 07:40 General appearance: Present: no acute distress Results - Labs CBC & Chem 7: 01/18/19 07:42 01/18/19 07:42 Labs: Laboratory Last Values WBC 9.2 K/mm3 (4.5-11.0) 01/18/19 07:42 RBC 4.83 M/mm3 (3.65-5.03) 01/18/19 07:42 Hgb 13.8 gm/dl (10.1-14.3) 01/18/19 07:42 Hct 41.2 % (30.3-42.9) 01/18/19 07:42 MCV 85 fl (79-97) 01/18/19 07:42 MCH 29 pg (28-32) 01/18/19 07:42 MCHC 33 % (30-34) 01/18/19 07:42 RDW 15.8 % (13.2-15.2) H 01/18/19 07:42 Plt Count 180 K/mm3 (140-440) 01/18/19 07:42 Lymph % (Auto) Set And Exhibit Designer 01/15/19 19:15 [place] % (Auto) Set And Exhibit Designer 01/15/19 19:15 Eos % (Auto) Set And Exhibit Designer 01/15/19 19:15 Baso % (Auto) Set And Exhibit Designer 01/15/19 19:15 Lymph # Set And Exhibit Designer 01/15/19 19:15 [place] # Set And Exhibit Designer 01/15/19 19:15 Eos # Set And Exhibit Designer 01/15/19 19:15 Baso # Set And Exhibit Designer 01/15/19 19:15 Seg Neutrophils % Set And Exhibit Designer 01/15/19 19:15 Seg Neutrophils # Set And Exhibit Designer 01/15/19 19:15 PT 11.3 Sec. (12.2-14.9) L 01/15/19 19:15 INR 0.85 (0.87-1.13) L 01/15/19 19:15 APTT 20.0 Sec. (24.2-36.6) L 01/15/19 19:15 15.0 Sec. (15.1-19.6) L 01/15/19 19:15 Sodium 140 mmol/L (137-145) 01/18/19 07:42 Potassium 4.0 mmol/L (3.6-5.0) 01/18/19 07:42 Chloride 104.9 mmol/L (98-107) 01/18/19 07:42 Carbon Dioxide 25 mmol/L (22-30) 01/18/19 07:42 14 mmol/L 01/18/19 07:42 BUN 10 mg/dL (7-17) 01/18/19 07:42 0.8 mg/dL (0.7-1.2) 01/18/19 07:42 Estimated GFR > 60 ml/min 01/18/19 07:42 13 % 01/18/19 07:42 Glucose 93 mg/dL (65-100) 01/18/19 07:42 POC Glucose 98 (70-105) 01/19/19 11:49 5.5 % (4-6) 01/17/19 03:33 Calcium 12.0 mg/dL (8.4-10.2) H 01/18/19 07:42 Magnesium 1.80 mg/dL (1.7-2.3) 01/18/19 07:42 0.40 mg/dL (0.1-1.2) 01/18/19 07:42 < 0.2 mg/dL (0-0.2) 01/16/19 07:07 0.0 mg/dL 01/16/19 07:07 AST 30 units/L (5-40) 01/18/19 07:42 ALT 21 units/L (7-56) 01/18/19 07:42 111 units/L (35-129) 01/18/19 07:42 < 0.010 ng/mL (0.00-0.029) 01/15/19 20:07 7.1 g/dL (6.3-8.2) 01/18/19 07:42 3.4 g/dL (3.9-5) L 01/18/19 07:42 0.9 % 01/18/19 07:42 Triglycerides 128 mg/dL (2-149) 01/17/19 03:33 Cholesterol 178 mg/dL (50-199) 01/17/19 03:33 95 mg/dL (50-130) 01/17/19 03:33 72 mg/dL (40-59) H 01/17/19 03:33 2.47 % 01/17/19 03:33 Yellow (Yellow) 01/16/19 14:32 Clear (Clear) 01/16/19 14:32 7.0 (5.0-7.0) 01/16/19 14:32 Ur Specific [place] 1.021 (1.003-1.030) 01/16/19 14:32 <15 mg/dl mg/dL (Negative) 01/16/19 14:32 Neg mg/dL (Negative) 01/16/19 14:32 Neg mg/dL (Negative) 01/16/19 14:32 Neg (Negative) 01/16/19 14:32 Neg (Negative) 01/16/19 14:32 Neg (Negative) 01/16/19 14:32 < 2.0 mg/dL (<2.0) 01/16/19 14:32 Ur Leukocyte Esterase Sm (Negative) 01/16/19 14:32 1.0 /HPF (0.0-6.0) 01/16/19 14:32 4.0 /HPF (0.0-6.0) 01/16/19 14:32 U Epithel Cells (Auto) 2.0 /HPF (0-13.0) 01/16/19 14:32 Valproic Acid 8.3 ug/mL (50-100) L 01/16/19 02:03 Active Medications - Current Medications Current Medications: Generic Name Dose Route Start Last Admin Trade Name Freq PRN Reason Stop Dose Admin Acetaminophen 650 mg 01/16/19 00:22 Tylenol PO Q4H PRN Pain, Mild (1-3) Aspirin 300 mg 01/16/19 10:00 01/19/19 10:01 Aspirin [place] 300 mg QDAY YOMI Administration Atorvastatin Calcium 40 mg 01/16/19 22:00 01/18/19 21:09 Lipitor PO 40 mg QHS YOMI Administration Bisacodyl 10 mg 01/16/19 00:22 Dulcolax [place] QDAY PRN Constipation Divalproex Sodium 125 mg 01/16/19 22:00 01/18/19 21:[address] PO 125 mg QHS YOMI Administration Enoxaparin Sodium 30 mg 01/16/19 10:00 01/19/19 10:00 Lovenox SUB-Q 30 mg QDAY YOMI Administration Olanzapine 2.5 mg 01/16/19 10:00 01/19/19 10:01 Zyprexa PO 2.5 mg QDAY YOMI Administration Ondansetron HCl 4 mg 01/16/19 00:22 Zofran IV Q8H PRN Nausea And Vomiting Promethazine HCl 25 mg 01/16/19 00:22 Phenergan [place] Q6H PRN Nausea And Vomiting Sodium Chloride 10 ml 01/16/19 00:22 Sodium Chloride Flush Syringe 10 Ml IV PRN PRN LINE FLUSH Nutrition/Malnutrition Assess - Dietary Evaluation Nutrition/Malnutrition Findings: Nutrition Notes Start: 01/16/19 12:45 Freq: Status: Active Protocol: Document 01/18/19 11:48 LP (Rec: 01/18/19 11:51 LP [id number]) Nutrition Notes Initial or Follow up Brief Note Current Diet Mechanical soft diet with thin liquids Subjective/Other Information Pt diet was incorrect and just changed today. Nutrition Intervention Follow-Up By: 01/19/19 Additional Comments Follow for intakes
--- NOTE | 2019-01-19 15:12 | Progress Note ---
Assessment and Plan Assessment and plan: Patient is a 78-year-old -[place] woman who resides in a custodial with history of dementia, syncope, seizure, coronary artery disease presents to [facility] ED with complaints of altered mental status. Pt was placed outside in wheelchair around 4pm yesterday. She was later found to be more confused in wheelchair by custodial staff. At baseline pt is non-verbal. Review of medical records shows that she was admitted in November with similar complaints. Tele-neurology (Dr. Carvajal) was notified and elevated pt, recommendations appreciated. Pt is not a candidate for TPA due to unknown last known time. 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, dw Vascular surgery, given advanced age and dementia, she is not a candidate for surgical mgt Acute encephalopathy improving Hypercalcemia improving with IVF DVT PPX -on Lovenox Dementia cont supportive care Hx Seizures cont AEDs Disposition: dispo to SNF, daughter looking at places, tentative dc to snf tomorrow Hospitalist Physical - Constitutional Vitals: Temp Pulse Resp BP Pulse Ox 98.0 F 102 H 18 143/68 98 01/19/19 12:42 01/19/19 09:12 01/19/19 12:42 01/19/19 12:42 01/19/19 07:40 General appearance: Present: no acute distress Results - Labs CBC & Chem 7: 01/18/19 07:42 01/18/19 07:42 Labs: Laboratory Last Values WBC 9.2 K/mm3 (4.5-11.0) 01/18/19 07:42 RBC 4.83 M/mm3 (3.65-5.03) 01/18/19 07:42 Hgb 13.8 gm/dl (10.1-14.3) 01/18/19 07:42 Hct 41.2 % (30.3-42.9) 01/18/19 07:42 MCV 85 fl (79-97) 01/18/19 07:42 MCH 29 pg (28-32) 01/18/19 07:42 MCHC 33 % (30-34) 01/18/19 07:42 RDW 15.8 % (13.2-15.2) H 01/18/19 07:42 Plt Count 180 K/mm3 (140-440) 01/18/19 07:42 Lymph % (Auto) Physical Therapy Aides Teacher 01/15/19 19:15 [place] % (Auto) Physical Therapy Aides Teacher 01/15/19 19:15 Eos % (Auto) Physical Therapy Aides Teacher 01/15/19 19:15 Baso % (Auto) Physical Therapy Aides Teacher 01/15/19 19:15 Lymph # Physical Therapy Aides Teacher 01/15/19 19:15 [place] # Physical Therapy Aides Teacher 01/15/19 19:15 Eos # Physical Therapy Aides Teacher 01/15/19 19:15 Baso # Physical Therapy Aides Teacher 01/15/19 19:15 Seg Neutrophils % Physical Therapy Aides Teacher 01/15/19 19:15 Seg Neutrophils # Physical Therapy Aides Teacher 01/15/19 19:15 PT 11.3 Sec. (12.2-14.9) L 01/15/19 19:15 INR 0.85 (0.87-1.13) L 01/15/19 19:15 APTT 20.0 Sec. (24.2-36.6) L 01/15/19 19:15 15.0 Sec. (15.1-19.6) L 01/15/19 19:15 Sodium 140 mmol/L (137-145) 01/18/19 07:42 Potassium 4.0 mmol/L (3.6-5.0) 01/18/19 07:42 Chloride 104.9 mmol/L (98-107) 01/18/19 07:42 Carbon Dioxide 25 mmol/L (22-30) 01/18/19 07:42 14 mmol/L 01/18/19 07:42 BUN 10 mg/dL (7-17) 01/18/19 07:42 0.8 mg/dL (0.7-1.2) 01/18/19 07:42 Estimated GFR > 60 ml/min 01/18/19 07:42 13 % 01/18/19 07:42 Glucose 93 mg/dL (65-100) 01/18/19 07:42 POC Glucose 98 (70-105) 01/19/19 11:49 5.5 % (4-6) 01/17/19 03:33 Calcium 12.0 mg/dL (8.4-10.2) H 01/18/19 07:42 Magnesium 1.80 mg/dL (1.7-2.3) 01/18/19 07:42 0.40 mg/dL (0.1-1.2) 01/18/19 07:42 < 0.2 mg/dL (0-0.2) 01/16/19 07:07 0.0 mg/dL 01/16/19 07:07 AST 30 units/L (5-40) 01/18/19 07:42 ALT 21 units/L (7-56) 01/18/19 07:42 111 units/L (35-129) 01/18/19 07:42 < 0.010 ng/mL (0.00-0.029) 01/15/19 20:07 7.1 g/dL (6.3-8.2) 01/18/19 07:42 3.4 g/dL (3.9-5) L 01/18/19 07:42 0.9 % 01/18/19 07:42 Triglycerides 128 mg/dL (2-149) 01/17/19 03:33 Cholesterol 178 mg/dL (50-199) 01/17/19 03:33 95 mg/dL (50-130) 01/17/19 03:33 72 mg/dL (40-59) H 01/17/19 03:33 2.47 % 01/17/19 03:33 Yellow (Yellow) 01/16/19 14:32 Clear (Clear) 01/16/19 14:32 7.0 (5.0-7.0) 01/16/19 14:32 Ur Specific [place] 1.021 (1.003-1.030) 01/16/19 14:32 <15 mg/dl mg/dL (Negative) 01/16/19 14:32 Neg mg/dL (Negative) 01/16/19 14:32 Neg mg/dL (Negative) 01/16/19 14:32 Neg (Negative) 01/16/19 14:32 Neg (Negative) 01/16/19 14:32 Neg (Negative) 01/16/19 14:32 < 2.0 mg/dL (<2.0) 01/16/19 14:32 Ur Leukocyte Esterase Sm (Negative) 01/16/19 14:32 1.0 /HPF (0.0-6.0) 01/16/19 14:32 4.0 /HPF (0.0-6.0) 01/16/19 14:32 U Epithel Cells (Auto) 2.0 /HPF (0-13.0) 01/16/19 14:32 Valproic Acid 8.3 ug/mL (50-100) L 01/16/19 02:03 Active Medications - Current Medications Current Medications: Generic Name Dose Route Start Last Admin Trade Name Freq PRN Reason Stop Dose Admin Acetaminophen 650 mg 01/16/19 00:22 Tylenol PO Q4H PRN Pain, Mild (1-3) Aspirin 300 mg 01/16/19 10:00 01/19/19 10:01 Aspirin [place] 300 mg QDAY YOMI Administration Atorvastatin Calcium 40 mg 01/16/19 22:00 01/18/19 21:09 Lipitor PO 40 mg QHS YOMI Administration Bisacodyl 10 mg 01/16/19 00:22 Dulcolax [place] QDAY PRN Constipation Divalproex Sodium 125 mg 01/16/19 22:00 01/18/19 21:[address] PO 125 mg QHS YOMI Administration Enoxaparin Sodium 30 mg 01/16/19 10:00 01/19/19 10:00 Lovenox SUB-Q 30 mg QDAY YOMI Administration Olanzapine 2.5 mg 01/16/19 10:00 01/19/19 10:01 Zyprexa PO 2.5 mg QDAY YOMI Administration Ondansetron HCl 4 mg 01/16/19 00:22 Zofran IV Q8H PRN Nausea And Vomiting Promethazine HCl 25 mg 01/16/19 00:22 Phenergan [place] Q6H PRN Nausea And Vomiting Sodium Chloride 10 ml 01/16/19 00:22 Sodium Chloride Flush Syringe 10 Ml IV PRN PRN LINE FLUSH Nutrition/Malnutrition Assess - Dietary Evaluation Nutrition/Malnutrition Findings: Nutrition Notes Start: 01/16/19 12:45 Freq: Status: Active Protocol: Document 01/18/19 11:48 LP (Rec: 01/18/19 11:51 LP [id number]) Nutrition Notes Initial or Follow up Brief Note Current Diet Mechanical soft diet with thin liquids Subjective/Other Information Pt diet was incorrect and just changed today. Nutrition Intervention Follow-Up By: 01/19/19 Additional Comments Follow for intakes
--- NOTE | 2019-01-19 15:15 | Discharge Summary ---
Providers - Providers Date of Admission: 01/15/19 23:44 Attending physician: DANN LOVE MD 01/16/19 Consult to Physician [CONS] Routine Comment: Consulting Provider: DONELL UPTON Physician Instructions: Reason For Exam: cva hx severe ICA stenosis 01/16/19 00:22 Occupational Therapy Evaluate and Treat [CONS] Routine Comment: Reason For Exam: Neuro deficits Physical Therapy Evaluation and Treat [CONS] Routine Comment: Reason For Exam: Neuro deficits 01/16/19 00:23 Speech Therapy Evaluation and Treat [CONS] Routine Reason For Exam: swallow eval 01/16/19 00:37 Consult to Dietitian/Nutrition [CONS] Routine Physician Instructions: Reason For Exam: Reason for Consult: Poor oral intake 01/16/19 15:43 Consult to Physician [CONS] Routine Comment: Consulting Provider: SAMUEL PATTERSON Physician Instructions: Reason For Exam: carotid stenosis 01/19/19 14:57 Consult to Physician [CONS] Routine Reason For Exam: cva Consulting Provider: RASHEED PARK Physician Instructions: Comment: [facility] Hospital[facility] Condition: Stable Hospital course: Patient is a 78-year-old -[place] woman who resides in a senior care with history of dementia, syncope, seizure, coronary artery disease presents to [facility] ED with complaints of altered mental status. Pt was placed outside in wheelchair around 4pm yesterday. She was later found to be more confused in wheelchair by senior care staff. At baseline pt is non-verbal. Review of medical records shows that she was admitted in November with similar complaints. Tele- neurology (Dr. Carvajal) was notified and elevated pt, recommendations appreciated. Pt is not a candidate for TPA due to unknown last known time. 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, dw Vascular surgery, given advanced age and dementia, she is not a candidate for surgical mgt Acute encephalopathy improving Hypercalcemia improving with IVF DVT PPX -on Lovenox Dementia cont supportive care Hx Seizures cont AEDs Disposition: dispo to SNF, daughter looking at places, tentative dc to snf tomorrow Disposition: DC/[place]-03 SNF [facility] Time spent for discharge: 33 minutes Core Measure Documentation - Palliative Care Palliative Care/ Comfort Measures: Not Applicable - Core Measures Any of the following diagnoses?: none Exam - Constitutional Vitals: Temp Pulse Resp BP Pulse Ox 98.0 F 102 H 18 143/68 98 01/19/19 12:42 01/19/19 09:12 01/19/19 12:42 01/19/19 12:42 01/19/19 07:40 General appearance: Present: no acute distress, well-nourished - EENT Eyes: Present: PERRL ENT: hearing intact, clear oral mucosa - Neck Neck: Present: supple, normal ROM - Respiratory Respiratory effort: normal Respiratory: bilateral: CTA - Cardiovascular Heart Sounds: Present: S1 & S2. Absent: rub, click - Extremities Extremities: pulses symmetrical, No edema Peripheral Pulses: within normal limits - Abdominal General gastrointestinal: Present: soft, non-tender, non-distended, normal bowel sounds Female genitourinary: Present: normal - Integumentary Integumentary: Present: clear, warm, dry - Musculoskeletal Musculoskeletal: gait normal, strength equal bilaterally - Psychiatric Psychiatric: appropriate mood/affect, intact judgment & insight - Neurologic Neurologic: CNII-XII intact, moves all extremities Plan Follow up with: KSENIA RODRIGUEZ MD [Primary Care Provider] - 3-5 Days Prescriptions: Aspirin EC 81 mg PO QDAY #30 tablet.
[2019-01-20 04:57] LABS: BUN/Creatinine Ratio 18; Blood Urea Nitrogen 14 mg/dL (7-17); Hemolysis Index 157
[2019-01-20 08:11] VITALS: BP 134/78
[2019-01-20] MEDS ORDERED: HALFPRIN EC PO SCH (10:00)
[2019-01-20] MEDS: LOVENOX SUB-Q SCH (10:01)
[2019-01-26 14:38] LABS: Vitamin D, 25-OH, D2 <4 ng/mL
[2019-01-26 15:14] LABS: Vitamin D, 25-OH, D2 5 ng/mL
== END 2019-01-20 14:00 | DRG 64 ==
LOC: ED 18:56 → 4A 23:44
PROVIDERS: ADMIT Internal Medicine; ATTEND Internal Medicine
DX: I63.231 Cerebral infarction due to unspecified occlusion or stenosis of right carotid arteries (principal); G93.41 Metabolic encephalopathy; E83.52 Hypercalcemia; R56.9 Unspecified convulsions; E78.5 Hyperlipidemia, unspecified; I25.10 Atherosclerotic heart disease of native coronary artery without angina pectoris; R55 Syncope and collapse; G30.9 Alzheimer's disease, unspecified; F02.80 Dementia in other diseases classified elsewhere, unspecified severity, without behavioral disturbance, psychotic disturbance, mood disturbance, and anxiety
CPT/HCPCS: 36415; 70450; 70496; 70498; 70551; 71045; 80048; 80053; 80061; 80076; 80164; 81001; 82306; 82962; 83036; 83735; 83970; 84484; 85025; 85027; 85610; 85670; 85730; 87040; 87086; 87116; 93005; 93010; 96360; 96361; G0378; A9270-GY; J1650; J7030; Q9967